=== PATIENT | female | born 1940 | race African-American/Black ===

== ENCOUNTER → 2017-06-06 | Outpatient (CLI) | payer MEDICARE, MEDICAID | END | disposition home or self-care (01) | LOC: NM 07:39 | PROVIDERS: ATTEND Internal Medicine Endocrinology, Diabetes & Metabolism | DX: E83.52 Hypercalcemia (principal) | CPT/HCPCS: 78070; A9500 ==

== ENCOUNTER → 2017-08-23 | Outpatient (CLI) | payer MEDICARE, MEDICAID | END | disposition home or self-care (01) | LOC: CARD 11:02 | PROVIDERS: ATTEND Internal Medicine Nephrology | DX: I51.7 Cardiomegaly (principal); J98.11 Atelectasis; D35.1 Benign neoplasm of parathyroid gland | CPT/HCPCS: 71045; 93005 ==

== ENCOUNTER → 2017-12-28 | Outpatient (CLI) | payer MEDICARE, MEDICAID | END | disposition home or self-care (01) | LOC: NM 07:15 | PROVIDERS: ATTEND Surgery | DX: E21.3 Hyperparathyroidism, unspecified (principal); I11.0 Hypertensive heart disease with heart failure; I50.9 Heart failure, unspecified; K21.9 Gastro-esophageal reflux disease without esophagitis; E78.00 Pure hypercholesterolemia, unspecified; I48.91 Unspecified atrial fibrillation | CPT/HCPCS: 78070; A9500 ==

== ENCOUNTER 2020-05-01 10:29 | Inpatient (IN) | payer MEDICARE, MEDICAID ==
[~2020-05-01] VITALS: Ht 167.6 cm; Wt 79.6 kg
[2020-05-01 11:07] LABS: BASOPHILS % 0.7 % (0.0-2.0); EOSINOPHILS % 0.5 % (0.0-5.0); HEMATOCRIT. 36.1 % (36.0-48.0); HEMOGLOBIN. 11.6 g/dL (12.0-16.0); LYMPHOCYTES % 24.8 % (20.0-50.0); MEAN CORPUSCULAR HEMOGLOBIN 28.3 pg (28.0-32.0); MEAN PLATELET VOLUME 8.7 fl (7.4-10.4); MONOCYTES % 7.8 % (2.0-8.0); NEUTROPHILS % 66.2 % (40.0-76.0); PLATELET 198 x1000/uL (130-400); RED BLOOD CELL COUNT 4.11 mill/uL (4.2-5.4); RED CELL DISTRIBUTION WIDTH 13.5 % (11.6-14.6)
[2020-05-01 11:13] LABS: CHLORIDE 111 mEq/L (98-107)
[2020-05-01] MEDS ORDERED: FUROSEMIDE 20MG/2ML VIAL IVP ONE (11:45)
[2020-05-01] MEDS ORDERED: MAGNESIUM 1 G PREMIX 100 ML IV ONE (11:45)
[2020-05-01] MEDS ORDERED: CLONIDINE 0.1MG TABLET PO PRN ×2 (15:15→17:30)
[2020-05-01] MEDS ORDERED: LOSARTAN POTASSIUM 25 MG TABLET PO SCH (15:26)
[2020-05-01] MEDS ORDERED: ENOXAPARIN 60MG/0.6ML SYR SUBCUT NR (16:00)
[2020-05-01] MEDS ORDERED: GUAIFENESIN 200MG/10ML SUGAR FREE UDC PO PRN (17:30)
[2020-05-01] MEDS ORDERED: MAGNESIUM/ALUMINUM HYDROXIDE/SIMETHICONE 30ML UDC PO PRN (17:30)
[2020-05-01] MEDS ORDERED: ONDANSETRON HCL 4MG/2ML INJ IV PRN (17:30)
[2020-05-01] MEDS ORDERED: ACETAMINOPHEN 325MG TABLET PO PRN (17:30)
[2020-05-01] MEDS ORDERED: DIPHENHYDRAMINE 50MG/ML VIAL IV PRN (17:30)
[2020-05-01] MEDS ORDERED: DILTIAZEM HCL 60MG TABLET PO SCH (18:00)
[2020-05-01] MEDS: ACETAMINOPHEN 325MG TABLET PO PRN (18:43)
[2020-05-01] MEDS: FUROSEMIDE 100MG/10ML VIAL IVP SCH (21:00)
[2020-05-01] MEDS: SODIUM CHLORIDE 0.9% INJ 3ML FLUSH IVF SCH (22:00)
[2020-05-02 07:10] LABS: CHLORIDE 110 mEq/L (98-107)
[2020-05-02 07:18] LABS: LDL CHOLESTEROL 52 mg/dL (5-100)
[2020-05-02 07:19] LABS: HDL CHOLESTEROL 56 mg/dL (40-59)
[2020-05-02 07:20] LABS: CREATINE KINASE 205 IU/L (26-192); CREATINE KINASE MB FRACTION 3.1 ng/mL (0.5-3.6)
[2020-05-02 07:47] LABS: EOSINOPHILS % 1.3 % (0.0-5.0); HEMATOCRIT. 34.8 % (36.0-48.0); HEMOGLOBIN. 11.1 g/dL (12.0-16.0); LYMPHOCYTES % 38.7 % (20.0-50.0); MEAN CORPUSCULAR HEMOGLOBIN 28.3 pg (28.0-32.0); MEAN CORPUSCULAR VOLUME 88.9 fL (81.0-99.0); MEAN PLATELET VOLUME 9.1 fl (7.4-10.4); MONOCYTES % 11.5 % (2.0-8.0); NEUTROPHILS % 47.5 % (40.0-76.0); PLATELET 187 x1000/uL (130-400); RED BLOOD CELL COUNT 3.91 mill/uL (4.2-5.4); RED CELL DISTRIBUTION WIDTH 13.7 % (11.6-14.6)
[2020-05-02] MEDS ORDERED: ENOXAPARIN 40MG/0.4ML SYR SUBCUT SCH ×2 (09:00→12:15)
[2020-05-02 10:40] VITALS: BP 145/91
[2020-05-02] MEDS: FUROSEMIDE 100MG/10ML VIAL IVP SCH ×2 (11:47→17:02)
[2020-05-02 12:00] VITALS: BP 145/90
[2020-05-02] MEDS ORDERED: DILTIAZEM HCL 60MG TABLET PO SCH (12:00)
[2020-05-02] MEDS: DILTIAZEM HCL 90MG TABLET PO SCH ×3 (12:16→17:03)
[2020-05-02] MEDS: POTASSIUM CHLORIDE 20MEQ TABLET SR PO SCH ×2 (12:16→17:02)
[2020-05-02] MEDS: SODIUM CHLORIDE 0.9% INJ 3ML FLUSH IVF SCH ×2 (14:27→22:25)
[2020-05-02 16:00] VITALS: BP 104/77
[2020-05-02] MEDS ORDERED: HYDROCODONE/ACETAMINOPHEN 5/325MG TABLET PO PRN (19:00)
[2020-05-02 20:00] VITALS: BP 118/80
[2020-05-02] MEDS: ZOLPIDEM TARTRATE 5MG TABLET PO PRN (22:25)
[2020-05-02] MEDS: ENOXAPARIN 80MG/0.8ML SYR SUBCUT SCH (22:25)
[2020-05-03] VITALS: BP 117/84
[2020-05-03] MEDS: DILTIAZEM HCL 90MG TABLET PO SCH ×4 (00:35→17:05)
[2020-05-03 04:00] VITALS: BP_SYST 113; BP_DIAS 54; BP_DIAS 78
[2020-05-03] MEDS: SODIUM CHLORIDE 0.9% INJ 3ML FLUSH IVF SCH ×3 (06:42→22:14)
[2020-05-03 07:31] LABS: BASOPHILS % 1.1 % (0.0-2.0); EOSINOPHILS % 1.7 % (0.0-5.0); HEMATOCRIT. 32.8 % (36.0-48.0); HEMOGLOBIN. 10.6 g/dL (12.0-16.0); LYMPHOCYTES % 25.1 % (20.0-50.0); MEAN CORPUSCULAR HEMOGLOBIN 28.6 pg (28.0-32.0); MEAN CORPUSCULAR VOLUME 88.3 fL (81.0-99.0); MEAN PLATELET VOLUME 9.4 fl (7.4-10.4); MONOCYTES % 10.3 % (2.0-8.0); NEUTROPHILS % 61.8 % (40.0-76.0); PLATELET 179 x1000/uL (130-400); RED BLOOD CELL COUNT 3.72 mill/uL (4.2-5.4); RED CELL DISTRIBUTION WIDTH 13.6 % (11.6-14.6)
[2020-05-03 07:45] LABS: CHLORIDE 109 mEq/L (98-107)
[2020-05-03 08:00] VITALS: BP 120/80
[2020-05-03] MEDS: ENOXAPARIN 80MG/0.8ML SYR SUBCUT SCH ×2 (09:30→22:12)
[2020-05-03] MEDS: FUROSEMIDE 20MG/2ML VIAL IVP SCH ×2 (09:30→22:12)
[2020-05-03] MEDS: POTASSIUM CHLORIDE 20MEQ TABLET SR PO SCH ×2 (09:30→17:05)
[2020-05-03 12:00] VITALS: BP 106/71
[2020-05-03] MEDS: ASPIRIN 81MG TABLET PO SCH (14:54)
[2020-05-03] MEDS: NITROGLYCERIN OINT 1GM/INCH UDPKT TD SCH ×2 (14:54→22:13)
[2020-05-03 16:00] VITALS: BP 124/68
[2020-05-03 20:00] VITALS: BP 105/66
[2020-05-03] MEDS: ZOLPIDEM TARTRATE 5MG TABLET PO PRN (22:11)
[2020-05-03] MEDS: LOSARTAN POTASSIUM 25 MG TABLET PO SCH (22:12)
[2020-05-04] VITALS: BP 115/47
[2020-05-04 04:00] VITALS: BP 111/64
[2020-05-04] MEDS: NITROGLYCERIN OINT 1GM/INCH UDPKT TD SCH ×3 (07:10→22:16)
[2020-05-04] MEDS: DILTIAZEM HCL 90MG TABLET PO SCH ×4 (07:10→17:44)
[2020-05-04] MEDS: SODIUM CHLORIDE 0.9% INJ 3ML FLUSH IVF SCH ×3 (07:11→22:00)
[2020-05-04 08:00] VITALS: BP 137/85
[2020-05-04] MEDS: POTASSIUM CHLORIDE 20MEQ TABLET SR PO SCH (09:43)
[2020-05-04] MEDS: ASPIRIN 81MG TABLET PO SCH (09:43)
[2020-05-04] MEDS: LOSARTAN POTASSIUM 25 MG TABLET PO SCH (09:43)
[2020-05-04] MEDS: ACETAMINOPHEN 325MG TABLET PO PRN (09:43)
[2020-05-04] MEDS: FUROSEMIDE 20MG/2ML VIAL IVP SCH (09:43)
[2020-05-04] MEDS: ENOXAPARIN 80MG/0.8ML SYR SUBCUT SCH (09:44)
[2020-05-04] MEDS: SODIUM CHLORIDE 0.45% 1,000 ML IV SCH (09:48)
[2020-05-04] MEDS: ACETYLCYSTEINE 200MG/ML 20% VIAL 4ML PO SCH ×2 (11:04→22:16)
[2020-05-04 12:00] VITALS: BP 105/83
[2020-05-04 16:00] VITALS: BP 106/77
[2020-05-04 20:00] VITALS: BP_SYST 118; BP_SYST 119; BP_DIAS 75; BP_DIAS 82
[2020-05-04] MEDS: ZOLPIDEM TARTRATE 5MG TABLET PO PRN (22:19)
[2020-05-05] VITALS: BP 114/76
[2020-05-05] MEDS: DILTIAZEM HCL 90MG TABLET PO SCH ×5 (00:53→23:57)
[2020-05-05] MEDS: SODIUM CHLORIDE 0.45% 1,000 ML IV SCH (01:03)
[2020-05-05 04:00] VITALS: BP 126/86
[2020-05-05] MEDS: SODIUM CHLORIDE 0.9% INJ 3ML FLUSH IVF SCH ×3 (06:00→22:37)
[2020-05-05] MEDS: NITROGLYCERIN OINT 1GM/INCH UDPKT TD SCH ×3 (06:48→22:39)
[2020-05-05 08:00] VITALS: BP 98/57
[2020-05-05] MEDS: ASPIRIN 81MG TABLET PO SCH (09:00)
[2020-05-05] MEDS ORDERED: ENOXAPARIN 80MG/0.8ML SYR SUBCUT SCH (09:00)
[2020-05-05] MEDS ORDERED: SODIUM CHLORIDE 0.45% 1,000 ML IV SCH ×4 (09:15→23:45)
[2020-05-05] MEDS ORDERED: NICARDIPINE 100MCG/ML 10ML VIAL (CATH LAB) IV ONE (11:00)
[2020-05-05] MEDS ORDERED: NITROGLYCERIN 50MCG/ML 10ML VIAL (CATH LAB) IV ONE (11:00)
[2020-05-05] MEDS ORDERED: HEPARIN SODIUM 1,000 UNIT/1ML VIAL IV ONE (11:00)
[2020-05-05] MEDS ORDERED: ASPIRIN/SOD BICARB/CITRIC ACID 324MG TAB EFF ONE (11:46)
[2020-05-05] MEDS ORDERED: LIDOCAINE HCL 1% 20ML VIAL (Pyxis) INJ ONE (11:48)
[2020-05-05] MEDS ORDERED: IODIXANOL 320MG/ML 100 ML BOTTLE IV ONE (11:49)
[2020-05-05 12:00] VITALS: BP 120/89
[2020-05-05] MEDS ORDERED: MIDAZOLAM HCL 2 MG/2 ML VIAL ONE (13:09)
[2020-05-05] MEDS ORDERED: FENTANYL CITRATE/PF 50MCG/ML 2ML VIAL ONE (13:09)
[2020-05-05] MEDS ORDERED: ACETAMINOPHEN 325MG TABLET PO PRN (14:15)
[2020-05-05] MEDS ORDERED: ATROPINE SULFATE 1MG/10ML SYR IV PRN (14:15)
[2020-05-05] MEDS ORDERED: MORPHINE SULFATE 2 MG/ML CPJ (NOT FOR IM USE) IV PRN (14:15)
[2020-05-05] MEDS ORDERED: FUROSEMIDE 20MG TABLET PO NR (17:45)
[2020-05-05 20:00] VITALS: BP 128/69
[2020-05-05] MEDS ORDERED: ENOXAPARIN 60MG/0.6ML SYR SUBCUT NR (21:00)
[2020-05-05] MEDS: FUROSEMIDE 20MG/2ML VIAL IVP SCH (21:00)
[2020-05-05] MEDS: ACETYLCYSTEINE 200MG/ML 20% VIAL 4ML PO SCH (22:38)
[2020-05-05] MEDS: ZOLPIDEM TARTRATE 5MG TABLET PO PRN (23:57)
[2020-05-06] VITALS: BP 111/84
[2020-05-06 04:00] VITALS: BP 126/79
[2020-05-06] MEDS: DILTIAZEM HCL 90MG TABLET PO SCH ×3 (06:35→17:41)
[2020-05-06] MEDS: NITROGLYCERIN OINT 1GM/INCH UDPKT TD SCH ×3 (06:36→22:31)
[2020-05-06] MEDS: SODIUM CHLORIDE 0.9% INJ 3ML FLUSH IVF SCH ×3 (06:36→22:31)
[2020-05-06 07:34] LABS: CHLORIDE 105 mEq/L (98-107)
[2020-05-06 07:37] LABS: BASOPHILS % 0.8 % (0.0-2.0); EOSINOPHILS % 1.5 % (0.0-5.0); HEMATOCRIT. 31.7 % (36.0-48.0); HEMOGLOBIN. 10.1 g/dL (12.0-16.0); LYMPHOCYTES % 25.2 % (20.0-50.0); MEAN CORPUSCULAR HEMOGLOBIN 28.2 pg (28.0-32.0); MEAN CORPUSCULAR VOLUME 88.4 fL (81.0-99.0); MEAN PLATELET VOLUME 9.3 fl (7.4-10.4); MONOCYTES % 13.7 % (2.0-8.0); NEUTROPHILS % 58.8 % (40.0-76.0); PLATELET 177 x1000/uL (130-400); RED BLOOD CELL COUNT 3.59 mill/uL (4.2-5.4); RED CELL DISTRIBUTION WIDTH 13.6 % (11.6-14.6)
[2020-05-06 08:00] VITALS: BP 118/65
[2020-05-06] MEDS: ACETYLCYSTEINE 200MG/ML 20% VIAL 4ML PO SCH (09:00)
[2020-05-06] MEDS: FUROSEMIDE 20MG/2ML VIAL IVP SCH (09:30)
[2020-05-06] MEDS: ASPIRIN 81MG TABLET PO SCH (09:30)
[2020-05-06 11:56] LABS: BG BASE EXCESS 5.5 mmol/L (-2.0-2.0); BG CARBOXYHEMOGLOBIN 0.4 % (0.5-1.5); BG DEOXYHEMOGLOBIN 0.8 % (0.0-5.0); BG FRACTION INSPIRED OXYGEN 44; BG HCO3 ACT 27.8 mmol/L (22.0-26.0); BG METHEMOGLOBIN 0.3 % (0.0-1.5); BG OXYGEN SATURATION 99.2 % (92.0-98.5); BG OXYHEMOGLOBIN 98.5 % (94.0-97.0); BG PCO2 32.3 mmHg (35.0-45.0); BG PH 7.552 (7.350-7.450); BG PO2 139.9 mmHg (75.0-100.0); BG SAMPLE SITE RIGHT RADIAL; BG TOTAL HEMOGLOBIN 11.3 g/dL (12.0-18.0); BG VENT MODE NASAL CANNULA
[2020-05-06] MEDS: LOSARTAN POTASSIUM 25 MG TABLET PO SCH (13:55)
[2020-05-06] MEDS ORDERED: ENOXAPARIN 80MG/0.8ML SYR SUBCUT NR (14:14)
[2020-05-06 20:00] VITALS: BP 112/74
[2020-05-07] VITALS: BP 118/63
[2020-05-07] MEDS: DILTIAZEM HCL 90MG TABLET PO SCH ×3 (00:38→12:00)
[2020-05-07] MEDS: NITROGLYCERIN OINT 1GM/INCH UDPKT TD SCH ×3 (03:00→18:50)
[2020-05-07 04:00] VITALS: BP 127/71
[2020-05-07] MEDS: SODIUM CHLORIDE 0.9% INJ 3ML FLUSH IVF SCH ×2 (06:00→22:00)
[2020-05-07] MEDS ORDERED: LIDOCAINE HCL 1% 20ML VIAL (Pyxis) INJ ONE (08:25)
[2020-05-07] MEDS ORDERED: IODIXANOL 320MG/ML 100 ML BOTTLE IV ONE (08:25)
[2020-05-07] MEDS: FUROSEMIDE 20MG/2ML VIAL IVP SCH (09:00)
[2020-05-07] MEDS: LOSARTAN POTASSIUM 25 MG TABLET PO SCH (09:00)
[2020-05-07] MEDS: ASPIRIN 81MG TABLET PO SCH (09:00)
[2020-05-07] MEDS ORDERED: ROCURONIUM BROMIDE 10MG/ML VIAL 5ML IV ONE (09:05)
[2020-05-07] MEDS ORDERED: MIDAZOLAM HCL 2 MG/2 ML VIAL ONE ×2 (09:05→09:39)
[2020-05-07] MEDS ORDERED: FENTANYL CITRATE/PF 50MCG/ML 2ML VIAL ONE ×2 (09:05→09:40)
[2020-05-07] MEDS ORDERED: ONDANSETRON HCL 4MG/2ML INJ ONE (09:06)
[2020-05-07] MEDS ORDERED: SUCCINYLCHOLINE CHLORIDE 200MG/10ML IV ONE (09:06)
[2020-05-07] MEDS ORDERED: NEOSTIGMINE METHYLSULFATE 1MG/ML 10 ML VIAL ONE (09:06)
[2020-05-07] MEDS ORDERED: PROPOFOL 200MG/20ML VIAL IV ONE (09:06)
[2020-05-07] MEDS ORDERED: METOCLOPRAMIDE HCL 10MG/2ML VIAL ONE (09:06)
[2020-05-07] MEDS ORDERED: GLYCOPYRROLATE 0.2 MG/ML 2ML VIAL ONE (09:07)
[2020-05-07] MEDS ORDERED: SODIUM CHLORIDE 0.9% 10ML VIAL ONE (09:07)
[2020-05-07] MEDS ORDERED: PHENYLEPHRINE HCL 10 MG/ML 1ML (IV VIAL) IV ONE (09:07)
[2020-05-07] MEDS ORDERED: EPHEDRINE SULFATE 50MG/ML VIAL ONE (09:07)
[2020-05-07] MEDS ORDERED: LIDOCAINE HCL/PF 1% 10 MG/ML 5ML VIAL ONE (09:07)
[2020-05-07] MEDS ORDERED: CEFAZOLIN SODIUM 1000MG/VIAL ONE (09:07)
[2020-05-07] MEDS ORDERED: GENTAMICIN SULF 40MG/ML 2ML VIAL ONE (10:07)
[2020-05-07] MEDS ORDERED: GENTAMICIN/NS IRRIGATION 500 ML IR ONE (10:07)
[2020-05-07 11:19] LABS: BG BASE EXCESS -0.4 mmol/L (-2.0-2.0); BG CARBOXYHEMOGLOBIN 0.3 % (0.5-1.5); BG DEOXYHEMOGLOBIN 4.2 % (0.0-5.0); BG HCO3 ACT 22.6 mmol/L (22.0-26.0); BG METHEMOGLOBIN 0.6 % (0.0-1.5); BG OXYGEN SATURATION 95.8 % (92.0-98.5); BG OXYHEMOGLOBIN 94.9 % (94.0-97.0); BG PCO2 31.6 mmHg (35.0-45.0); BG PH 7.473 (7.350-7.450); BG PO2 83.8 mmHg (75.0-100.0); BG SAMPLE SITE ALINE; BG TOTAL HEMOGLOBIN 10.8 g/dL (12.0-18.0)
[2020-05-07 11:27] LABS: BG CARBOXYHEMOGLOBIN 0.1 % (0.5-1.5); BG DEOXYHEMOGLOBIN 53.4 % (0.0-5.0); BG FRACTION INSPIRED OXYGEN 50; BG METHEMOGLOBIN 0.3 % (0.0-1.5); BG OXYGEN SATURATION 46.4 % (92.0-98.5); BG OXYHEMOGLOBIN 46.2 % (94.0-97.0); BG PO2 < 30.3 mmHg (75.0-100.0); BG TOTAL HEMOGLOBIN 11.2 g/dL (12.0-18.0); BG VENT MODE VENT - AC
[2020-05-07 11:28] LABS: BG FRACTION INSPIRED OXYGEN 50
[2020-05-07] MEDS ORDERED: LABETALOL 5MG/ML SYR 20 MG/4 ML SYRINGE IV NR (14:00)
[2020-05-07] MEDS ORDERED: MEPERIDINE HCL/PF 25MG/ML CPJ IV PRN (14:00)
[2020-05-07] MEDS ORDERED: ONDANSETRON HCL 4MG/2ML INJ IV PRN (14:00)
[2020-05-07] MEDS ORDERED: HYDROMORPHONE HCL/PF 2MG/ML CPJ IV PRN (14:00)
[2020-05-07] MEDS ORDERED: SODIUM CHLORIDE 0.9% 1,000 ML IV ONE (14:00)
[2020-05-07] MEDS ORDERED: MIDAZOLAM HCL 5 MG/5 ML VIAL IV NR (14:01)
[2020-05-07] MEDS ORDERED: MIDAZOLAM HCL 5 MG/5 ML VIAL ONE (14:01)
[2020-05-07] MEDS ORDERED: HYDROCODONE/ACETAMINOPHEN 5/325MG TABLET PO PRN (14:15)
[2020-05-07] MEDS ORDERED: FUROSEMIDE 100MG/10ML VIAL IVP SCH (14:15)
[2020-05-07] MEDS ORDERED: FUROSEMIDE 20MG/2ML VIAL ONE (14:20)
[2020-05-07 14:38] LABS: BG BASE EXCESS -1.9 mmol/L (-2.0-2.0); BG CARBOXYHEMOGLOBIN 0.3 % (0.5-1.5); BG DEOXYHEMOGLOBIN 5.2 % (0.0-5.0); BG FRACTION INSPIRED OXYGEN 70; BG HCO3 ACT 23.4 mmol/L (22.0-26.0); BG METHEMOGLOBIN 0.5 % (0.0-1.5); BG OXYGEN SATURATION 94.8 % (92.0-98.5); BG PCO2 41.8 mmHg (35.0-45.0); BG PEEP (cmH2O) 0 cmH2O; BG PH 7.366 (7.350-7.450); BG PO2 80.2 mmHg (75.0-100.0); BG SAMPLE SITE RIGHT RADIAL; BG VENT MODE VENT - AC
[2020-05-07] MEDS ORDERED: FUROSEMIDE 100MG/10ML VIAL IVP NR (15:00)
[2020-05-07 18:20] LABS: BG BASE EXCESS -0.5 mmol/L (-2.0-2.0); BG CARBOXYHEMOGLOBIN 0.6 % (0.5-1.5); BG DEOXYHEMOGLOBIN 6.3 % (0.0-5.0); BG FRACTION INSPIRED OXYGEN 50; BG HCO3 ACT 24.5 mmol/L (22.0-26.0); BG METHEMOGLOBIN 0.3 % (0.0-1.5); BG OXYGEN SATURATION 93.6 % (92.0-98.5); BG OXYHEMOGLOBIN 92.8 % (94.0-97.0); BG PCO2 41.6 mmHg (35.0-45.0); BG PH 7.388 (7.350-7.450); BG SAMPLE SITE ALINE; BG TOTAL HEMOGLOBIN 12.4 g/dL (12.0-18.0); BG TOTAL RESPIRATORY RATE 24 b/min; BG VENT MODE VENT - CPAP
[2020-05-07] MEDS ORDERED: LABETALOL 5MG/ML SYR 20 MG/4 ML SYRINGE IV ONE ×2 (18:45→18:46)
[2020-05-07 18:47] LABS: BG PRESSURE SUPPORT 10
[2020-05-07] MEDS: CEFAZOLIN 1000MG PREMIX 50 ML IV SCH ×2 (18:53→19:15)
[2020-05-07] MEDS: CARVEDILOL 6.25 MG TABLET PO SCH (21:26)
[2020-05-07] MEDS: ACETAMINOPHEN 325MG TABLET PO PRN (21:28)
[2020-05-07 21:54] LABS: BG BASE EXCESS 4.2 mmol/L (-2.0-2.0); BG DEOXYHEMOGLOBIN 3.8 % (0.0-5.0); BG FRACTION INSPIRED OXYGEN 50; BG HCO3 ACT 29.1 mmol/L (22.0-26.0); BG METHEMOGLOBIN 0.3 % (0.0-1.5); BG OXYGEN SATURATION 96.2 % (92.0-98.5); BG OXYHEMOGLOBIN 95.9 % (94.0-97.0); BG PCO2 44.9 mmHg (35.0-45.0); BG PO2 82.5 mmHg (75.0-100.0); BG SAMPLE SITE ALINE; BG TOTAL HEMOGLOBIN 11.8 g/dL (12.0-18.0); BG VENT MODE VENT - SIMV
[2020-05-07] MEDS: MIDAZOLAM HCL 5 MG/5 ML VIAL IV PRN (22:50)
[2020-05-08] VITALS (60 sets, daily range): BP systolic 90–198; BP diastolic 65–102
[2020-05-08] MEDS: CEFAZOLIN 1000MG PREMIX 50 ML IV SCH ×3 (02:10→17:01)
[2020-05-08] MEDS: MIDAZOLAM HCL 5 MG/5 ML VIAL IV PRN (03:19)
[2020-05-08 05:49] LABS: BG PRESSURE SUPPORT 10
[2020-05-08] MEDS: SODIUM CHLORIDE 0.9% INJ 3ML FLUSH IVF SCH ×3 (06:00→22:00)
[2020-05-08 06:22] LABS: BASOPHILS % 0.4 % (0.0-2.0); EOSINOPHILS % 0.3 % (0.0-5.0); HEMATOCRIT. 32.4 % (36.0-48.0); HEMOGLOBIN. 10.6 g/dL (12.0-16.0); LYMPHOCYTES % 10.3 % (20.0-50.0); MEAN CORPUSCULAR HEMOGLOBIN 28.9 pg (28.0-32.0); MEAN CORPUSCULAR VOLUME 88.3 fL (81.0-99.0); MEAN PLATELET VOLUME 8.7 fl (7.4-10.4); MONOCYTES % 13.4 % (2.0-8.0); NEUTROPHILS % 75.6 % (40.0-76.0); PLATELET 174 x1000/uL (130-400); RED BLOOD CELL COUNT 3.67 mill/uL (4.2-5.4); RED CELL DISTRIBUTION WIDTH 13.9 % (11.6-14.6)
[2020-05-08] MEDS: NITROGLYCERIN OINT 1GM/INCH UDPKT TD SCH ×4 (08:41→21:14)
[2020-05-08] MEDS: CARVEDILOL 6.25 MG TABLET PO SCH ×2 (08:42→21:14)
[2020-05-08] MEDS: APIXABAN 5 MG TABLET PO SCH ×2 (08:42→16:58)
[2020-05-08] MEDS: LOSARTAN POTASSIUM 25 MG TABLET PO SCH ×2 (08:42→16:58)
[2020-05-08] MEDS: ASPIRIN 81MG TABLET PO SCH (09:52)
[2020-05-08] MEDS ORDERED: HYDROCODONE/ACETAMINOPHEN 5/325MG TABLET ONE (12:07)
[2020-05-08 13:34] LABS: BG BASE EXCESS 2.2 mmol/L (-2.0-2.0); BG CARBOXYHEMOGLOBIN 0.4 % (0.5-1.5); BG DEOXYHEMOGLOBIN 3.2 % (0.0-5.0); BG HCO3 ACT 26.8 mmol/L (22.0-26.0); BG METHEMOGLOBIN 0.4 % (0.0-1.5); BG OXYGEN SATURATION 96.8 % (92.0-98.5); BG PCO2 41.5 mmHg (35.0-45.0); BG PH 7.428 (7.350-7.450); BG PO2 89.6 mmHg (75.0-100.0); BG SAMPLE SITE ALINE; BG TOTAL HEMOGLOBIN 11.5 g/dL (12.0-18.0); BG VENT MODE VENT - CPAP
[2020-05-08] MEDS ORDERED: FENTANYL CITRATE/PF 2,500 MCG in SODIUM CHLORIDE 0.9% 200 ML IV PRN (15:00)
[2020-05-08] MEDS ORDERED: FUROSEMIDE 40MG/4ML VIAL IVP NR (15:15)
[2020-05-08] MEDS: PROPOFOL 10MG/ML 100ML 100 ML IV PRN ×2 (15:33→22:31)
[2020-05-08] MEDS ORDERED: POTASSIUM CHLORIDE 20MEQ/PACKET PO SCH (16:00)
[2020-05-08] MEDS: METHYLPREDNISOLONE SOD SUCC 125 MG/2 ML VIAL IV SCH (17:01)
[2020-05-09] VITALS (25 sets, daily range): BP systolic 123–174; BP diastolic 64–112
[2020-05-09] MEDS: NITROGLYCERIN OINT 1GM/INCH UDPKT TD SCH ×5 (01:15→17:37)
[2020-05-09] MEDS: CEFAZOLIN 1000MG PREMIX 50 ML IV SCH ×3 (01:15→18:09)
[2020-05-09] MEDS: METHYLPREDNISOLONE SOD SUCC 125 MG/2 ML VIAL IV SCH ×4 (01:15→17:21)
[2020-05-09] MEDS: PROPOFOL 10MG/ML 100ML 100 ML IV PRN ×3 (05:32→22:11)
[2020-05-09] MEDS: SODIUM CHLORIDE 0.9% INJ 3ML FLUSH IVF SCH ×4 (06:00→22:00)
[2020-05-09] MEDS: ASPIRIN 81MG TABLET PO SCH (09:25)
[2020-05-09] MEDS: CARVEDILOL 6.25 MG TABLET PO SCH ×2 (09:26→20:39)
[2020-05-09] MEDS: APIXABAN 5 MG TABLET PO SCH ×2 (09:26→17:21)
[2020-05-09] MEDS: LOSARTAN POTASSIUM 25 MG TABLET PO SCH (09:26)
[2020-05-09] MEDS ORDERED: POTASSIUM CHLORIDE 20MEQ/PACKET PO NR (13:00)
[2020-05-09] MEDS: FUROSEMIDE 40MG/4ML VIAL IVP SCH (14:56)
[2020-05-09] MEDS ORDERED: PROPOFOL 10MG/ML 100ML 100 ML IV PRN (15:15)
[2020-05-09] MEDS: LOSARTAN POTASSIUM 50 MG TABLET PO SCH (20:38)
[2020-05-09] MEDS: DEXTROSE 5% WATER 1,000 ML IV SCH (22:14)
[2020-05-10] VITALS (20 sets, daily range): BP systolic 112–150; BP diastolic 66–99
[2020-05-10] MEDS: METHYLPREDNISOLONE SOD SUCC 125 MG/2 ML VIAL IV SCH ×5 (01:26→23:42)
[2020-05-10] MEDS: NITROGLYCERIN OINT 1GM/INCH UDPKT TD SCH ×4 (01:28→18:05)
[2020-05-10] MEDS: CEFAZOLIN 1000MG PREMIX 50 ML IV SCH ×3 (01:29→18:17)
[2020-05-10] MEDS: SODIUM CHLORIDE 0.9% INJ 3ML FLUSH IVF SCH ×3 (06:00→22:00)
[2020-05-10 07:46] LABS: HEMATOCRIT. 34.5 % (36.0-48.0); HEMOGLOBIN. 11.2 g/dL (12.0-16.0); MEAN CORPUSCULAR HEMOGLOBIN 28.5 pg (28.0-32.0); MEAN CORPUSCULAR VOLUME 87.6 fL (81.0-99.0); MEAN PLATELET VOLUME 9.1 fl (7.4-10.4); PLATELET 198 x1000/uL (130-400); RED BLOOD CELL COUNT 3.94 mill/uL (4.2-5.4); RED CELL DISTRIBUTION WIDTH 13.6 % (11.6-14.6)
[2020-05-10] MEDS: FUROSEMIDE 40MG/4ML VIAL IVP SCH (09:13)
[2020-05-10] MEDS: ASPIRIN 81MG TABLET PO SCH (09:13)
[2020-05-10] MEDS: POTASSIUM CHLORIDE 20MEQ/PACKET PO SCH (09:13)
[2020-05-10] MEDS: LOSARTAN POTASSIUM 50 MG TABLET PO SCH ×2 (09:14→20:52)
[2020-05-10] MEDS: APIXABAN 5 MG TABLET PO SCH ×2 (09:14→18:04)
[2020-05-10] MEDS: CARVEDILOL 6.25 MG TABLET PO SCH ×2 (09:14→20:52)
[2020-05-10] MEDS: ACETAMINOPHEN 325MG TABLET PO PRN (09:15)
[2020-05-10] MEDS: PROPOFOL 10MG/ML 100ML 100 ML IV SCH (12:50)
[2020-05-10] MEDS ORDERED: POTASSIUM CHLORIDE 20MEQ TABLET SR PO NR (17:15)
[2020-05-10 18:51] LABS: PLATELET ESTIMATE NORMAL
[2020-05-10] MEDS: FUROSEMIDE 20MG/2ML VIAL IVP SCH (20:52)
[2020-05-10] MEDS: DEXTROSE 5% WATER 1,000 ML IV SCH (21:15)
[2020-05-11] VITALS (38 sets, daily range): BP systolic 132–167; BP diastolic 68–103
[2020-05-11] MEDS: NITROGLYCERIN OINT 1GM/INCH UDPKT TD SCH ×5 (01:43→23:24)
[2020-05-11] MEDS: CEFAZOLIN 1000MG PREMIX 50 ML IV SCH ×3 (02:21→19:05)
[2020-05-11 05:42] LABS: CHLORIDE 108 mEq/L (98-107)
[2020-05-11] MEDS: SODIUM CHLORIDE 0.9% INJ 3ML FLUSH IVF SCH ×3 (06:00→22:11)
[2020-05-11] MEDS: METHYLPREDNISOLONE SOD SUCC 125 MG/2 ML VIAL IV SCH ×4 (06:04→23:24)
[2020-05-11] MEDS: PROPOFOL 10MG/ML 100ML 100 ML IV SCH (06:08)
[2020-05-11 06:10] LABS: HEMOGLOBIN. 11.8 g/dL (12.0-16.0); MEAN CORPUSCULAR HEMOGLOBIN 28.6 pg (28.0-32.0); MEAN CORPUSCULAR VOLUME 87.4 fL (81.0-99.0); MEAN PLATELET VOLUME 8.9 fl (7.4-10.4); PLATELET 203 x1000/uL (130-400); RED BLOOD CELL COUNT 4.12 mill/uL (4.2-5.4); RED CELL DISTRIBUTION WIDTH 13.9 % (11.6-14.6)
[2020-05-11] MEDS: DEXTROSE 5% WATER 1,000 ML IV SCH (10:41)
[2020-05-11] MEDS: ASPIRIN 81MG TABLET PO SCH (10:42)
[2020-05-11] MEDS: POTASSIUM CHLORIDE 20MEQ/PACKET PO SCH (10:42)
[2020-05-11] MEDS: CARVEDILOL 6.25 MG TABLET PO SCH ×2 (10:42→22:10)
[2020-05-11] MEDS: APIXABAN 5 MG TABLET PO SCH ×2 (10:43→19:04)
[2020-05-11] MEDS: FUROSEMIDE 40MG/4ML VIAL IVP SCH (11:12)
[2020-05-11 11:41] LABS: BG BASE EXCESS 5.2 mmol/L (-2.0-2.0); BG CARBOXYHEMOGLOBIN 0.3 % (0.5-1.5); BG DEOXYHEMOGLOBIN 3.5 % (0.0-5.0); BG FRACTION INSPIRED OXYGEN 40; BG HCO3 ACT 30.4 mmol/L (22.0-26.0); BG METHEMOGLOBIN 0.3 % (0.0-1.5); BG OXYGEN SATURATION 96.5 % (92.0-98.5); BG OXYHEMOGLOBIN 95.9 % (94.0-97.0); BG PCO2 47.1 mmHg (35.0-45.0); BG PH 7.428 (7.350-7.450); BG PO2 89.9 mmHg (75.0-100.0); BG SAMPLE SITE RIGHT RADIAL; BG TOTAL HEMOGLOBIN 12.4 g/dL (12.0-18.0); BG VENT MODE VENT - SIMV
[2020-05-11] MEDS ORDERED: NOREPINEPHRINE 32 MG in DEXT 5% WATER 218 ML IV PRN (11:45)
[2020-05-11] MEDS: LOSARTAN POTASSIUM 50 MG TABLET PO SCH ×2 (12:16→22:10)
[2020-05-11 14:35] LABS: PLATELET ESTIMATE NORMAL
[2020-05-11 17:06] LABS: BG CARBOXYHEMOGLOBIN 0.4 % (0.5-1.5); BG DEOXYHEMOGLOBIN 3.5 % (0.0-5.0); BG FRACTION INSPIRED OXYGEN 40; BG HCO3 ACT 32.5 mmol/L (22.0-26.0); BG METHEMOGLOBIN 0.2 % (0.0-1.5); BG OXYGEN SATURATION 96.5 % (92.0-98.5); BG OXYHEMOGLOBIN 95.9 % (94.0-97.0); BG PCO2 44.8 mmHg (35.0-45.0); BG PH 7.479 (7.350-7.450); BG PO2 82.9 mmHg (75.0-100.0); BG SAMPLE SITE RIGHT RADIAL; BG TOTAL HEMOGLOBIN 12.8 g/dL (12.0-18.0); BG VENT MODE VENT - CPAP
[2020-05-11] MEDS: FUROSEMIDE 20MG/2ML VIAL IVP SCH (22:10)
[2020-05-12] VITALS (21 sets, daily range): BP systolic 123–161; BP diastolic 63–105
[2020-05-12] MEDS: DILTIAZEM HCL 30MG TABLET PO SCH ×4 (00:37→17:18)
[2020-05-12] MEDS: CEFAZOLIN 1000MG PREMIX 50 ML IV SCH ×3 (01:55→17:19)
[2020-05-12 05:50] LABS: HEMATOCRIT. 37.7 % (36.0-48.0); HEMOGLOBIN. 12.2 g/dL (12.0-16.0); MEAN CORPUSCULAR HEMOGLOBIN 28.6 pg (28.0-32.0); MEAN CORPUSCULAR VOLUME 88.4 fL (81.0-99.0); MEAN PLATELET VOLUME 9.2 fl (7.4-10.4); PLATELET 212 x1000/uL (130-400); RED BLOOD CELL COUNT 4.26 mill/uL (4.2-5.4); RED CELL DISTRIBUTION WIDTH 13.6 % (11.6-14.6)
[2020-05-12] MEDS: SODIUM CHLORIDE 0.9% INJ 3ML FLUSH IVF SCH ×3 (05:59→21:35)
[2020-05-12] MEDS: NITROGLYCERIN OINT 1GM/INCH UDPKT TD SCH ×3 (05:59→17:19)
[2020-05-12] MEDS: METHYLPREDNISOLONE SOD SUCC 125 MG/2 ML VIAL IV SCH ×3 (05:59→17:18)
[2020-05-12] MEDS: APIXABAN 5 MG TABLET PO SCH ×2 (08:59→17:19)
[2020-05-12] MEDS: FUROSEMIDE 40MG/4ML VIAL IVP SCH (08:59)
[2020-05-12] MEDS: ASPIRIN 81MG TABLET PO SCH (09:00)
[2020-05-12] MEDS: LOSARTAN POTASSIUM 50 MG TABLET PO SCH ×2 (09:00→21:35)
[2020-05-12] MEDS: CARVEDILOL 6.25 MG TABLET PO SCH ×2 (09:01→21:35)
[2020-05-12] MEDS: POTASSIUM CHLORIDE 20MEQ/PACKET PO SCH (09:01)
[2020-05-12] MEDS ORDERED: POTASSIUM CHLORIDE 20MEQ/PACKET PO NR (14:15)
[2020-05-12 20:08] LABS: PLATELET ESTIMATE NORMAL
[2020-05-12] MEDS: FUROSEMIDE 20MG/2ML VIAL IVP SCH (21:35)
[2020-05-12] MEDS: ZOLPIDEM TARTRATE 5MG TABLET PO PRN (21:36)
[2020-05-13] VITALS (11 sets, daily range): BP systolic 103–148; BP diastolic 42–107
[2020-05-13] MEDS: DILTIAZEM HCL 30MG TABLET PO SCH ×4 (00:25→18:04)
[2020-05-13] MEDS: METHYLPREDNISOLONE SOD SUCC 125 MG/2 ML VIAL IV SCH ×4 (00:25→18:03)
[2020-05-13] MEDS: NITROGLYCERIN OINT 1GM/INCH UDPKT TD SCH ×4 (00:26→18:04)
[2020-05-13] MEDS: SODIUM CHLORIDE 0.9% INJ 3ML FLUSH IVF SCH ×3 (05:35→22:04)
[2020-05-13] MEDS: ASPIRIN 81MG TABLET PO SCH (08:46)
[2020-05-13] MEDS: APIXABAN 5 MG TABLET PO SCH ×2 (08:46→17:21)
[2020-05-13] MEDS: LOSARTAN POTASSIUM 50 MG TABLET PO SCH ×2 (08:46→22:04)
[2020-05-13] MEDS: CARVEDILOL 6.25 MG TABLET PO SCH ×3 (08:47→22:04)
[2020-05-13] MEDS: DOCUSATE SODIUM 250MG CAPSULE PO SCH (08:47)
[2020-05-13] MEDS: POTASSIUM CHLORIDE 20MEQ/PACKET PO SCH (08:47)
[2020-05-13] MEDS: FUROSEMIDE 40MG/4ML VIAL IVP SCH (08:48)
[2020-05-13] MEDS ORDERED: FUROSEMIDE 40MG TABLET PO SCH (12:30)
[2020-05-13] MEDS: SPIRONOLACTONE 25MG TABLET PO SCH (13:40)
[2020-05-13 15:31] LABS: HEMATOCRIT. 39.6 % (36.0-48.0); HEMOGLOBIN. 12.4 g/dL (12.0-16.0); MEAN CORPUSCULAR HEMOGLOBIN 27.8 pg (28.0-32.0); MEAN PLATELET VOLUME 9.5 fl (7.4-10.4); PLATELET 228 x1000/uL (130-400); RED BLOOD CELL COUNT 4.46 mill/uL (4.2-5.4); RED CELL DISTRIBUTION WIDTH 13.9 % (11.6-14.6)
[2020-05-13 16:07] LABS: PLATELET ESTIMATE NORMAL
[2020-05-13] MEDS: ZOLPIDEM TARTRATE 5MG TABLET PO PRN (22:04)
[2020-05-14] VITALS: BP 130/70
[2020-05-14] MEDS: NITROGLYCERIN OINT 1GM/INCH UDPKT TD SCH ×4 (00:31→17:51)
[2020-05-14] MEDS: DILTIAZEM HCL 30MG TABLET PO SCH ×4 (00:31→17:50)
[2020-05-14] MEDS: METHYLPREDNISOLONE SOD SUCC 125 MG/2 ML VIAL IV SCH ×3 (02:10→17:49)
[2020-05-14 04:22] VITALS: BP 129/79
[2020-05-14] MEDS: SODIUM CHLORIDE 0.9% INJ 3ML FLUSH IVF SCH ×3 (06:41→21:39)
[2020-05-14] MEDS: CARVEDILOL 6.25 MG TABLET PO SCH (06:41)
[2020-05-14 08:00] VITALS: BP 128/80
[2020-05-14 08:25] LABS: HEMATOCRIT. 39.6 % (36.0-48.0); HEMOGLOBIN. 12.7 g/dL (12.0-16.0); MEAN CORPUSCULAR HEMOGLOBIN 28.1 pg (28.0-32.0); MEAN CORPUSCULAR VOLUME 87.8 fL (81.0-99.0); MEAN PLATELET VOLUME 9.8 fl (7.4-10.4); PLATELET 224 x1000/uL (130-400); RED BLOOD CELL COUNT 4.51 mill/uL (4.2-5.4); RED CELL DISTRIBUTION WIDTH 13.7 % (11.6-14.6)
[2020-05-14] MEDS ORDERED: FUROSEMIDE 40MG TABLET PO SCH (09:00)
[2020-05-14] MEDS: ASPIRIN 81MG TABLET PO SCH (09:51)
[2020-05-14] MEDS: POTASSIUM CHLORIDE 20MEQ/PACKET PO SCH (09:51)
[2020-05-14] MEDS: DOCUSATE SODIUM 250MG CAPSULE PO SCH (09:52)
[2020-05-14] MEDS: LOSARTAN POTASSIUM 50 MG TABLET PO SCH ×2 (09:52→21:39)
[2020-05-14] MEDS: FUROSEMIDE 40MG TABLET PO SCH (09:52)
[2020-05-14] MEDS: APIXABAN 5 MG TABLET PO SCH ×2 (09:52→17:49)
[2020-05-14] MEDS: SPIRONOLACTONE 25MG TABLET PO SCH (09:53)
[2020-05-14 12:00] VITALS: BP 106/76
[2020-05-14 14:08] LABS: PLATELET ESTIMATE NORMAL
[2020-05-14 16:00] VITALS: BP 166/79
[2020-05-14] MEDS: CARVEDILOL 12.5MG TABLET PO SCH (17:51)
[2020-05-14 23:39] VITALS: BP 121/70
[2020-05-15] MEDS: DILTIAZEM HCL 30MG TABLET PO SCH ×4 (00:27→18:00)
[2020-05-15] MEDS: NITROGLYCERIN OINT 1GM/INCH UDPKT TD SCH ×4 (00:27→18:00)
[2020-05-15] MEDS: ZOLPIDEM TARTRATE 5MG TABLET PO PRN (00:30)
[2020-05-15 03:32] VITALS: BP 122/64
[2020-05-15] MEDS: SODIUM CHLORIDE 0.9% INJ 3ML FLUSH IVF SCH ×3 (06:06→22:02)
[2020-05-15 08:00] VITALS: BP 113/70
[2020-05-15] MEDS: LOSARTAN POTASSIUM 50 MG TABLET PO SCH ×2 (09:00→22:01)
[2020-05-15] MEDS: SPIRONOLACTONE 25MG TABLET PO SCH (09:00)
[2020-05-15] MEDS: CARVEDILOL 12.5MG TABLET PO SCH ×2 (09:00→17:00)
[2020-05-15] MEDS: METHYLPREDNISOLONE SOD SUCC 125 MG/2 ML VIAL IV SCH ×2 (09:37→17:00)
[2020-05-15] MEDS: POTASSIUM CHLORIDE 20MEQ/PACKET PO SCH (09:37)
[2020-05-15] MEDS: APIXABAN 5 MG TABLET PO SCH ×2 (09:38→17:41)
[2020-05-15] MEDS: ASPIRIN 81MG TABLET PO SCH (09:38)
[2020-05-15] MEDS: DOCUSATE SODIUM 250MG CAPSULE PO SCH (09:38)
[2020-05-15] MEDS: FUROSEMIDE 40MG TABLET PO SCH (09:38)
[2020-05-15 12:00] VITALS: BP 116/55
[2020-05-15 16:00] VITALS: BP 104/72
[2020-05-15 19:03] VITALS: BP 113/55
[2020-05-15 20:00] VITALS: BP 113/55
== END 2020-05-15 22:20 | DRG 222 ==
LOC: ER 10:29 → MICUSO 12:53 → EDBEDREQ 12:56 → EDBEDREQTM 12:56 → 5WST 05-02 08:34 → 5EST 05-08 05:30 → 5WST 05-13 18:52
PROVIDERS: ADMIT Internal Medicine; ATTEND Internal Medicine
PROC: 5A1955Z Respiratory Ventilation, Greater than 96 Consecutive Hours (ICD-10-PCS; principal; 2020-05-05)
PROC: 4A023N7 Measurement of Cardiac Sampling and Pressure, Left Heart, Percutaneous Approach (ICD-10-PCS; 2020-05-05)
PROC: B2111ZZ Fluoroscopy of Multiple Coronary Arteries using Low Osmolar Contrast (ICD-10-PCS; 2020-05-05)
PROC: 0BH18EZ Insertion of Endotracheal Airway into Trachea, Via Natural or Artificial Opening Endoscopic (ICD-10-PCS; 2020-05-05)
PROC: 0JH609Z Insertion of Cardiac Resynchronization Defibrillator Pulse Generator into Chest Subcutaneous Tissue and Fascia, Open Approach (ICD-10-PCS; 2020-05-07)
PROC: 02HL3KZ Insertion of Defibrillator Lead into Left Ventricle, Percutaneous Approach (ICD-10-PCS; 2020-05-07)
PROC: 02HK3KZ Insertion of Defibrillator Lead into Right Ventricle, Percutaneous Approach (ICD-10-PCS; 2020-05-07)
PROC: 02H63KZ Insertion of Defibrillator Lead into Right Atrium, Percutaneous Approach (ICD-10-PCS; 2020-05-07)
PROC: B5171ZZ Fluoroscopy of Left Subclavian Vein using Low Osmolar Contrast (ICD-10-PCS; 2020-05-07)
DX: I13.0 Hypertensive heart and chronic kidney disease with heart failure and stage 1 through stage 4 chronic kidney disease, or unspecified chronic kidney disease (principal); J96.01 Acute respiratory failure with hypoxia; I50.43 Acute on chronic combined systolic (congestive) and diastolic (congestive) heart failure; N17.9 Acute kidney failure, unspecified; I48.20 Chronic atrial fibrillation, unspecified; I25.10 Atherosclerotic heart disease of native coronary artery without angina pectoris; E66.9 Obesity, unspecified; D64.9 Anemia, unspecified; E78.00 Pure hypercholesterolemia, unspecified; E88.09 Other disorders of plasma-protein metabolism, not elsewhere classified; K21.9 Gastro-esophageal reflux disease without esophagitis; N18.31 Chronic kidney disease, stage 3a; E78.5 Hyperlipidemia, unspecified; F41.9 Anxiety disorder, unspecified; R13.10 Dysphagia, unspecified; T50.2X5A Adverse effect of carbonic-anhydrase inhibitors, benzothiadiazides and other diuretics, initial encounter; R53.81 Other malaise; R26.9 Unspecified abnormalities of gait and mobility; R74.01 Elevation of levels of liver transaminase levels; E03.9 Hypothyroidism, unspecified; Y82.8 Other medical devices associated with adverse incidents; Z20.822 Contact with and (suspected) exposure to COVID-19; Z78.9 Other specified health status; Z79.01 Long term (current) use of anticoagulants; Z82.49 Family history of ischemic heart disease and other diseases of the circulatory system; Z83.3 Family history of diabetes mellitus; I25.2 Old myocardial infarction; Z87.891 Personal history of nicotine dependence; Z68.29 Body mass index [BMI] 29.0-29.9, adult; Z95.5 Presence of coronary angioplasty implant and graft; Z95.810 Presence of automatic (implantable) cardiac defibrillator; Y92.89 Other specified places as the place of occurrence of the external cause; Z79.899 Other long term (current) drug therapy; Z88.5 Allergy status to narcotic agent; I25.5 Ischemic cardiomyopathy
CPT/HCPCS: 33225; 33249; 36415; 36600; 71045; 75820; 76770; 80048; 80053; 80061; 82375; 82550; 82553; 82805; 82962; 83735; 83880; 84145; 84443; 84478; 84484; 85025; 85379; 87426; 92610; 93005; 93306; 93451; 93458; 93641; 93970; 94002; 94003; 97162; 97166; 97530; 97535; 99285; A6261; C1726; C1769; C1882; C1887; C1892; C1893; C1898; C1899; C1900; J0330; J0690; J1200; J1580; J1644; J1650; J1940; J2250; J2370; J2405; J2704; J2710; J2765; J2930; J3010; J3475; J3490; J7040; J7050; J7070; J7608; Q9967; U0003; A4315

== ENCOUNTER 2020-05-15 22:20 | Inpatient (IN) | payer MEDICARE, MEDICAID ==
[~2020-05-15] VITALS: Ht 167.6 cm; Wt 82.6 kg
[2020-05-15 22:20] VITALS: BP 133/76
[2020-05-15] MEDS ORDERED: MAGNESIUM/ALUMINUM HYDROXIDE/SIMETHICONE 30ML UDC PO PRN (23:30)
[2020-05-15] MEDS ORDERED: ONDANSETRON HCL 4MG/2ML INJ IV PRN (23:30)
[2020-05-15] MEDS ORDERED: ATROPINE SULFATE 1MG/ML VIAL IV PRN (23:30)
[2020-05-15] MEDS ORDERED: ACETAMINOPHEN 325MG TABLET PO PRN ×3 (23:30)
[2020-05-15] MEDS ORDERED: CLONIDINE 0.1MG TABLET PO PRN (23:30)
[2020-05-15] MEDS ORDERED: DIPHENHYDRAMINE 50MG/ML VIAL IV PRN (23:30)
[2020-05-15] MEDS ORDERED: GUAIFENESIN 200MG/10ML SUGAR FREE UDC PO PRN (23:30)
[2020-05-16] MEDS ORDERED: ATROPINE SULFATE 1MG/10ML SYR IV PRN (01:00)
[2020-05-16 03:58] VITALS: BP 133/76
[2020-05-16] MEDS ORDERED: SODIUM CHLORIDE 0.9% INJ 3ML FLUSH IVF SCH (06:00)
[2020-05-16 08:00] VITALS: BP 134/87
[2020-05-16] MEDS: CARVEDILOL 12.5MG TABLET PO SCH ×2 (08:25→20:33)
[2020-05-16] MEDS: ASPIRIN 81MG TABLET PO SCH (08:25)
[2020-05-16] MEDS: DOCUSATE SODIUM 250MG CAPSULE PO SCH (08:26)
[2020-05-16] MEDS: FUROSEMIDE 20MG TABLET PO SCH (08:26)
[2020-05-16] MEDS: SPIRONOLACTONE 25MG TABLET PO SCH (08:26)
[2020-05-16] MEDS: DILTIAZEM HCL 30MG TABLET PO SCH ×5 (08:26→23:36)
[2020-05-16] MEDS: NITROGLYCERIN OINT 1GM/INCH UDPKT TD SCH ×4 (08:27→17:41)
[2020-05-16] MEDS: LOSARTAN POTASSIUM 50 MG TABLET PO SCH ×2 (08:27→20:33)
[2020-05-16] MEDS ORDERED: POTASSIUM CHLORIDE 20MEQ/PACKET PO SCH (09:00)
[2020-05-16] MEDS ORDERED: METHYLPREDNISOLONE SOD SUCC 125 MG/2 ML VIAL IV SCH (09:00)
[2020-05-16] MEDS ORDERED: DIPHENHYDRAMINE 25MG CAPSULE PO PRN (09:15)
[2020-05-16] MEDS ORDERED: ONDANSETRON HCL 4MG TABLET PO PRN (09:15)
[2020-05-16 09:38] LABS: BASOPHILS % 0.2 % (0.0-2.0); EOSINOPHILS % 0.9 % (0.0-5.0); HEMATOCRIT. 41.6 % (36.0-48.0); HEMOGLOBIN. 13.2 g/dL (12.0-16.0); LYMPHOCYTES % 19.1 % (20.0-50.0); MEAN CORPUSCULAR HEMOGLOBIN 28.4 pg (28.0-32.0); MEAN CORPUSCULAR VOLUME 89.3 fL (81.0-99.0); MONOCYTES % 7.7 % (2.0-8.0); NEUTROPHILS % 72.1 % (40.0-76.0); PLATELET 182 x1000/uL (130-400); RED BLOOD CELL COUNT 4.66 mill/uL (4.2-5.4); RED CELL DISTRIBUTION WIDTH 13.9 % (11.6-14.6)
[2020-05-16] MEDS: PREDNISONE 20MG TABLET PO SCH (13:19)
[2020-05-16] MEDS: APIXABAN 5 MG TABLET PO SCH ×2 (13:19→17:40)
[2020-05-16 15:40] LABS: CHLORIDE 99 mEq/L (98-107)
[2020-05-16 20:00] VITALS: BP 142/86
[2020-05-16 23:33] LABS: CLARITY URINE CLEAR (CLEAR); COLOR URINE YELLOW (YELLOW); KETONES URINE NEGATIVE (NEGATIVE); LEUKOCYTE ESTERASE URINE TRACE (NEGATIVE); NITRITE URINE NEGATIVE (NEGATIVE); OCCULT BLOOD URINE 2+ (NEGATIVE); PH URINE 6.5 (4.5-8.0); PROTEIN URINE 2+ (NEGATIVE); SPECIFIC GRAVITY URINE 1.014 (1.005-1.030)
[2020-05-16] MEDS: ZOLPIDEM TARTRATE 5MG TABLET PO PRN (23:36)
[2020-05-17] MEDS: NITROGLYCERIN OINT 1GM/INCH UDPKT TD SCH ×5 (00:51→23:53)
[2020-05-17] MEDS: DILTIAZEM HCL 30MG TABLET PO SCH ×4 (05:48→23:54)
[2020-05-17 08:03] VITALS: BP 123/82
[2020-05-17 08:08] LABS: HEMATOCRIT. 37.3 % (36.0-48.0); MEAN CORPUSCULAR HEMOGLOBIN 28.5 pg (28.0-32.0); MEAN CORPUSCULAR VOLUME 88.8 fL (81.0-99.0); MEAN PLATELET VOLUME 9.7 fl (7.4-10.4); PLATELET 211 x1000/uL (130-400); RED BLOOD CELL COUNT 4.21 mill/uL (4.2-5.4); RED CELL DISTRIBUTION WIDTH 13.7 % (11.6-14.6)
[2020-05-17 09:01] LABS: VITAMIN B12 SERUM 1528 pg/mL (211-911)
[2020-05-17 09:08] LABS: FOLIC ACID (FOLATE) SERUM > 20.00 ng/mL (>5.38)
[2020-05-17] MEDS: ASPIRIN 81MG TABLET PO SCH (09:19)
[2020-05-17] MEDS: DOCUSATE SODIUM 250MG CAPSULE PO SCH (09:19)
[2020-05-17] MEDS: SPIRONOLACTONE 25MG TABLET PO SCH (09:20)
[2020-05-17] MEDS: FUROSEMIDE 20MG TABLET PO SCH (09:20)
[2020-05-17] MEDS: LOSARTAN POTASSIUM 50 MG TABLET PO SCH ×2 (09:20→21:16)
[2020-05-17] MEDS: CARVEDILOL 12.5MG TABLET PO SCH ×2 (09:20→21:17)
[2020-05-17] MEDS: APIXABAN 5 MG TABLET PO SCH ×2 (09:20→17:33)
[2020-05-17] MEDS: PREDNISONE 20MG TABLET PO SCH (09:20)
[2020-05-17 09:32] LABS: CHLORIDE 100 mEq/L (98-107)
[2020-05-17 09:42] LABS: PHOSPHORUS 2.8 mg/dL (2.5-4.9)
[2020-05-17 09:46] LABS: TOTAL IRON BINDING CAPACITY 233 ug/dL (250-450)
[2020-05-17 11:50] LABS: FERRITIN 430 ng/mL (10-291)
[2020-05-17 15:33] LABS: HEPATITIS B SURFACE ANTIGEN NEGATIVE
[2020-05-17 16:03] LABS: HEPATITIS A AB IGM NEGATIVE (NEGATIVE)
[2020-05-17 20:00] VITALS: BP 124/72
[2020-05-17 23:01] LABS: PLATELET ESTIMATE NORMAL
[2020-05-17] MEDS: ZOLPIDEM TARTRATE 5MG TABLET PO PRN (23:54)
[2020-05-18] MEDS: NITROGLYCERIN OINT 1GM/INCH UDPKT TD SCH ×4 (05:51→23:54)
[2020-05-18] MEDS: DILTIAZEM HCL 30MG TABLET PO SCH ×4 (05:51→23:54)
[2020-05-18 08:00] VITALS: BP 113/71
[2020-05-18] MEDS: APIXABAN 5 MG TABLET PO SCH ×2 (08:16→17:44)
[2020-05-18] MEDS: ASPIRIN 81MG TABLET PO SCH (08:16)
[2020-05-18] MEDS: LOSARTAN POTASSIUM 50 MG TABLET PO SCH ×2 (08:16→21:51)
[2020-05-18] MEDS: SPIRONOLACTONE 25MG TABLET PO SCH (08:16)
[2020-05-18] MEDS: DOCUSATE SODIUM 250MG CAPSULE PO SCH (08:16)
[2020-05-18] MEDS: FUROSEMIDE 20MG TABLET PO SCH (08:16)
[2020-05-18] MEDS: PREDNISONE 20MG TABLET PO SCH (08:16)
[2020-05-18] MEDS: CARVEDILOL 12.5MG TABLET PO SCH ×2 (08:17→21:48)
[2020-05-18] MEDS: THROAT LOZENGES-BENZOCAINE/MENTH/CETYLPYRD CL LOZENGES MM PRN ×2 (15:08→21:53)
[2020-05-18 20:00] VITALS: BP 121/79
[2020-05-18] MEDS: ZOLPIDEM TARTRATE 5MG TABLET PO PRN (21:51)
[2020-05-19] MEDS: DILTIAZEM HCL 30MG TABLET PO SCH ×3 (06:30→17:12)
[2020-05-19] MEDS: NITROGLYCERIN OINT 1GM/INCH UDPKT TD SCH ×4 (06:31→23:49)
[2020-05-19 07:43] LABS: CHLORIDE 102 mEq/L (98-107)
[2020-05-19 08:09] VITALS: BP 125/68
[2020-05-19] MEDS: SPIRONOLACTONE 25MG TABLET PO SCH (08:50)
[2020-05-19] MEDS: APIXABAN 5 MG TABLET PO SCH ×2 (08:50→17:12)
[2020-05-19] MEDS: CARVEDILOL 12.5MG TABLET PO SCH ×2 (08:50→22:15)
[2020-05-19] MEDS: ASPIRIN 81MG TABLET PO SCH (08:50)
[2020-05-19] MEDS: FUROSEMIDE 20MG TABLET PO SCH (08:50)
[2020-05-19] MEDS: PREDNISONE 20MG TABLET PO SCH (08:50)
[2020-05-19] MEDS: LOSARTAN POTASSIUM 50 MG TABLET PO SCH ×2 (08:51→22:29)
[2020-05-19] MEDS: THROAT LOZENGES-BENZOCAINE/MENTH/CETYLPYRD CL LOZENGES MM PRN ×3 (08:51→23:49)
[2020-05-19 12:13] VITALS: BP 125/59
[2020-05-19 16:54] VITALS: BP 122/77
[2020-05-19 20:00] VITALS: BP 140/74
[2020-05-19] MEDS: ZOLPIDEM TARTRATE 5MG TABLET PO PRN (23:55)
[2020-05-20] MEDS: DILTIAZEM HCL 30MG TABLET PO SCH ×5 (06:16→23:33)
[2020-05-20] MEDS: NITROGLYCERIN OINT 1GM/INCH UDPKT TD SCH ×4 (06:17→23:38)
[2020-05-20] MEDS: THROAT LOZENGES-BENZOCAINE/MENTH/CETYLPYRD CL LOZENGES MM PRN (06:21)
[2020-05-20 08:00] VITALS: BP 113/68
[2020-05-20] MEDS: APIXABAN 5 MG TABLET PO SCH ×2 (09:32→17:25)
[2020-05-20] MEDS: SPIRONOLACTONE 25MG TABLET PO SCH (09:32)
[2020-05-20] MEDS: ASPIRIN 81MG TABLET PO SCH (09:32)
[2020-05-20] MEDS: FUROSEMIDE 20MG TABLET PO SCH (09:32)
[2020-05-20] MEDS: LOSARTAN POTASSIUM 50 MG TABLET PO SCH ×2 (09:32→21:00)
[2020-05-20] MEDS: CARVEDILOL 12.5MG TABLET PO SCH ×2 (09:33→21:00)
[2020-05-20] MEDS: PREDNISONE 20MG TABLET PO SCH (09:33)
[2020-05-20 20:00] VITALS: BP 108/56
[2020-05-21] MEDS: DILTIAZEM HCL 30MG TABLET PO SCH ×4 (05:41→23:56)
[2020-05-21] MEDS: NITROGLYCERIN OINT 1GM/INCH UDPKT TD SCH ×4 (05:41→23:57)
[2020-05-21 08:00] VITALS: BP 130/76
[2020-05-21 08:06] LABS: BASOPHILS % 0.1 % (0.0-2.0); EOSINOPHILS % 0.4 % (0.0-5.0); HEMATOCRIT. 35.7 % (36.0-48.0); HEMOGLOBIN. 11.7 g/dL (12.0-16.0); MEAN CORPUSCULAR VOLUME 88.5 fL (81.0-99.0); MEAN PLATELET VOLUME 9.4 fl (7.4-10.4); MONOCYTES % 10.1 % (2.0-8.0); NEUTROPHILS % 75.4 % (40.0-76.0); PLATELET 219 x1000/uL (130-400); RED BLOOD CELL COUNT 4.03 mill/uL (4.2-5.4); RED CELL DISTRIBUTION WIDTH 14.8 % (11.6-14.6)
[2020-05-21 08:23] LABS: CHLORIDE 102 mEq/L (98-107)
[2020-05-21] MEDS: FUROSEMIDE 20MG TABLET PO SCH (08:41)
[2020-05-21] MEDS: PREDNISONE 20MG TABLET PO SCH (08:41)
[2020-05-21] MEDS: SPIRONOLACTONE 25MG TABLET PO SCH (08:41)
[2020-05-21] MEDS: ASPIRIN 81MG TABLET PO SCH (08:41)
[2020-05-21] MEDS: APIXABAN 5 MG TABLET PO SCH (08:42)
[2020-05-21] MEDS: CARVEDILOL 12.5MG TABLET PO SCH ×2 (08:42→21:01)
[2020-05-21] MEDS: LOSARTAN POTASSIUM 50 MG TABLET PO SCH ×2 (08:42→21:01)
[2020-05-21] MEDS: ZOLPIDEM TARTRATE 5MG TABLET PO PRN (23:56)
[2020-05-22] MEDS: NITROGLYCERIN OINT 1GM/INCH UDPKT TD SCH ×3 (05:28→17:33)
[2020-05-22] MEDS: DILTIAZEM HCL 30MG TABLET PO SCH ×3 (05:28→17:34)
[2020-05-22 08:06] VITALS: BP 130/78
[2020-05-22] MEDS: LOSARTAN POTASSIUM 50 MG TABLET PO SCH ×2 (09:36→21:52)
[2020-05-22] MEDS: PREDNISONE 20MG TABLET PO SCH (09:36)
[2020-05-22] MEDS: SPIRONOLACTONE 25MG TABLET PO SCH (09:36)
[2020-05-22] MEDS: CARVEDILOL 12.5MG TABLET PO SCH ×2 (09:36→21:52)
[2020-05-22] MEDS: FUROSEMIDE 20MG TABLET PO SCH (09:36)
[2020-05-22] MEDS: ASPIRIN 81MG TABLET PO SCH (09:36)
[2020-05-22] MEDS: APIXABAN 5 MG TABLET PO SCH ×2 (12:17→17:33)
[2020-05-22 20:00] VITALS: BP 117/62
[2020-05-23] MEDS: DILTIAZEM HCL 30MG TABLET PO SCH ×3 (00:03→09:03)
[2020-05-23] MEDS: ZOLPIDEM TARTRATE 5MG TABLET PO PRN (00:03)
[2020-05-23] MEDS: NITROGLYCERIN OINT 1GM/INCH UDPKT TD SCH ×3 (00:03→12:07)
[2020-05-23 08:00] VITALS: BP 128/91
[2020-05-23] MEDS: LOSARTAN POTASSIUM 50 MG TABLET PO SCH (08:11)
[2020-05-23] MEDS: FUROSEMIDE 20MG TABLET PO SCH (08:11)
[2020-05-23] MEDS: SPIRONOLACTONE 25MG TABLET PO SCH (08:11)
[2020-05-23] MEDS: APIXABAN 5 MG TABLET PO SCH (08:11)
[2020-05-23] MEDS: CARVEDILOL 12.5MG TABLET PO SCH (08:12)
[2020-05-23] MEDS: ASPIRIN 81MG TABLET PO SCH (08:12)
[2020-05-23] MEDS: PREDNISONE 20MG TABLET PO SCH (08:12)
[2020-05-23] MEDS ORDERED: OMEPRAZOLE 20MG CAPSULE EXTENDED RELEASE PO SCH (09:15)
[2020-05-23 09:20] VITALS: BP 132/91
[2020-05-23] MEDS ORDERED: HYDROCODONE/ACETAMINOPHEN 5/325MG TABLET PO PRN (09:30)
[2020-05-23 09:45] VITALS: BP 135/92
[2020-05-23] MEDS ORDERED: DILTIAZEM HCL 60MG TABLET PO SCH (12:00)
[2020-05-23 15:06] LABS: 25-HYDROXY VITAMIN D3 37 ng/mL (.)
== END 2020-05-23 12:15 | DRG 948 ==
PROVIDERS: ADMIT Physical Medicine & Rehabilitation Spinal Cord Injury Medicine; ATTEND Internal Medicine
DX: R53.81 Other malaise (principal); I50.9 Heart failure, unspecified; N17.9 Acute kidney failure, unspecified; I13.0 Hypertensive heart and chronic kidney disease with heart failure and stage 1 through stage 4 chronic kidney disease, or unspecified chronic kidney disease; I42.9 Cardiomyopathy, unspecified; I48.20 Chronic atrial fibrillation, unspecified; E03.9 Hypothyroidism, unspecified; E66.9 Obesity, unspecified; E78.00 Pure hypercholesterolemia, unspecified; I25.10 Atherosclerotic heart disease of native coronary artery without angina pectoris; K76.0 Fatty (change of) liver, not elsewhere classified; N18.9 Chronic kidney disease, unspecified; R13.10 Dysphagia, unspecified; T50.2X5A Adverse effect of carbonic-anhydrase inhibitors, benzothiadiazides and other diuretics, initial encounter; Z20.822 Contact with and (suspected) exposure to COVID-19; Z79.01 Long term (current) use of anticoagulants
CPT/HCPCS: 36415; 76700; 80048; 80053; 80076; 81003; 82248; 82306; 82607; 82728; 82746; 82962; 83540; 83550; 83735; 84100; 84134; 84443; 85025; 86705; 86709; 86803; 87340; 92610; 93005; 93970; 97110; 97116; 97162; 97166; 97530; 97535; J7512

== ENCOUNTER 2020-07-22 16:33 | Inpatient (IN) | payer OTHER, MEDICAID ==
[~2020-07-22] VITALS: Ht 160 cm; Wt 79.0 kg
[2020-07-22] MEDS ORDERED: ACETAMINOPHEN 325MG TABLET PO ONE (18:15)
[2020-07-22 20:34] LABS: BASOPHILS % 1.1 % (0.0-2.0); EOSINOPHILS % 2.7 % (0.0-5.0); HEMATOCRIT. 38.2 % (36.0-48.0); HEMOGLOBIN. 12.5 g/dL (12.0-16.0); LYMPHOCYTES % 26.1 % (20.0-50.0); MEAN CORPUSCULAR HEMOGLOBIN 29.1 pg (28.0-32.0); MEAN CORPUSCULAR VOLUME 88.6 fL (81.0-99.0); MEAN PLATELET VOLUME 8.4 fl (7.4-10.4); MONOCYTES % 14.2 % (2.0-8.0); NEUTROPHILS % 55.9 % (40.0-76.0); PLATELET 201 x1000/uL (130-400); RED BLOOD CELL COUNT 4.31 mill/uL (4.2-5.4); RED CELL DISTRIBUTION WIDTH 16.1 % (11.6-14.6)
[2020-07-22 20:44] LABS: CHLORIDE 104 mEq/L (98-107)
[2020-07-23] MEDS ORDERED: ACETAMINOPHEN 325MG TABLET PO PRN ×2 (01:15)
[2020-07-23] MEDS ORDERED: CLONIDINE 0.1MG TABLET PO PRN (01:15)
[2020-07-23] MEDS ORDERED: GUAIFENESIN 200MG/10ML SUGAR FREE UDC PO PRN (01:15)
[2020-07-23] MEDS ORDERED: TRAMADOL 50MG TABLET PO PRN (01:15)
[2020-07-23] MEDS ORDERED: ONDANSETRON HCL 4MG/2ML INJ IV PRN (01:15)
[2020-07-23] MEDS ORDERED: MAGNESIUM/ALUMINUM HYDROXIDE/SIMETHICONE 30ML UDC PO PRN (01:15)
[2020-07-23] MEDS ORDERED: DIPHENHYDRAMINE 50MG/ML VIAL IV PRN (01:15)
[2020-07-23] MEDS ORDERED: ZOLPIDEM TARTRATE 5MG TABLET PO PRN (01:15)
[2020-07-23 04:55] VITALS: BP 119/73
[2020-07-23] MEDS: SODIUM CHLORIDE 0.9% INJ 3ML FLUSH IVF SCH ×3 (06:13→21:41)
[2020-07-23 08:00] VITALS: BP 118/66
[2020-07-23] MEDS: APIXABAN 5 MG TABLET PO SCH ×2 (09:20→17:25)
[2020-07-23] MEDS: OMEPRAZOLE 20MG CAPSULE EXTENDED RELEASE PO SCH (09:20)
[2020-07-23] MEDS: DILTIAZEM HCL 180MG CAPSULE CD 24HR PO SCH (09:20)
[2020-07-23] MEDS: CARVEDILOL 12.5MG TABLET PO SCH ×2 (09:20→21:41)
[2020-07-23 12:00] VITALS: BP 108/56
[2020-07-23 16:00] VITALS: BP 112/58
[2020-07-23] MEDS: DIGOXIN 125MCG TABLET PO SCH (17:25)
[2020-07-23 20:00] VITALS: BP 121/63
[2020-07-24 00:39] VITALS: BP 105/65
[2020-07-24 04:00] VITALS: BP 106/54
[2020-07-24] MEDS: SODIUM CHLORIDE 0.9% INJ 3ML FLUSH IVF SCH ×2 (06:21→13:21)
[2020-07-24] MEDS: OMEPRAZOLE 20MG CAPSULE EXTENDED RELEASE PO SCH (06:21)
[2020-07-24 08:00] VITALS: BP 106/55
[2020-07-24] MEDS: DILTIAZEM HCL 180MG CAPSULE CD 24HR PO SCH (08:31)
[2020-07-24] MEDS: CARVEDILOL 12.5MG TABLET PO SCH (08:31)
[2020-07-24] MEDS: APIXABAN 5 MG TABLET PO SCH ×2 (08:32→17:25)
[2020-07-24 12:00] VITALS: BP 114/60
[2020-07-24 16:00] VITALS: BP 112/64
[2020-07-24] MEDS: DIGOXIN 125MCG TABLET PO SCH (17:24)
== END 2020-07-24 18:42 | disposition left against medical advice (07) | DRG 551 ==
LOC: ER 16:33 → 6WST 22:11 → ENRESERV 07-23 02:36 → 6WST 07-23 03:59
PROVIDERS: ADMIT Internal Medicine; ATTEND Internal Medicine
DX: M48.061 Spinal stenosis, lumbar region without neurogenic claudication (principal); N17.0 Acute kidney failure with tubular necrosis; I13.0 Hypertensive heart and chronic kidney disease with heart failure and stage 1 through stage 4 chronic kidney disease, or unspecified chronic kidney disease; I48.20 Chronic atrial fibrillation, unspecified; I50.22 Chronic systolic (congestive) heart failure; E87.1 Hypo-osmolality and hyponatremia; M48.03 Spinal stenosis, cervicothoracic region; M51.16 Intervertebral disc disorders with radiculopathy, lumbar region; E03.9 Hypothyroidism, unspecified; K21.9 Gastro-esophageal reflux disease without esophagitis; N18.2 Chronic kidney disease, stage 2 (mild); M51.17 Intervertebral disc disorders with radiculopathy, lumbosacral region; E78.00 Pure hypercholesterolemia, unspecified; E87.5 Hyperkalemia; I25.10 Atherosclerotic heart disease of native coronary artery without angina pectoris; F17.210 Nicotine dependence, cigarettes, uncomplicated; M48.02 Spinal stenosis, cervical region; E66.9 Obesity, unspecified; M48.07 Spinal stenosis, lumbosacral region; Z53.21 Procedure and treatment not carried out due to patient leaving prior to being seen by health care provider; M50.30 Other cervical disc degeneration, unspecified cervical region; Z82.49 Family history of ischemic heart disease and other diseases of the circulatory system; Z86.73 Personal history of transient ischemic attack (TIA), and cerebral infarction without residual deficits; Z88.5 Allergy status to narcotic agent; Z79.899 Other long term (current) drug therapy; Z83.3 Family history of diabetes mellitus; Z95.810 Presence of automatic (implantable) cardiac defibrillator; Z68.30 Body mass index [BMI] 30.0-30.9, adult; V49.9XXA Car occupant (driver) (passenger) injured in unspecified traffic accident, initial encounter
CPT/HCPCS: 36415; 71045; 72131; 72170; 73552; 73560; 80048; 80053; 83880; 84484; 85025; 93005; 97112; 97116; 97162; 97166; 97530; 99285

== ENCOUNTER 2021-05-20 18:05 | Inpatient (IN) | payer MEDICARE, MEDICAID ==
[~2021-05-20] VITALS: Ht 161.3 cm; Wt 77.6 kg
[~2021-05-20 18:05] MED LIST: APIX5TAB PO; ATOR20TA65 MT; CARV12.545 MT; CINA30 MT; DIGO125T80 PO; FOLI-43 MT; HYDR-4133 MT; OMEP20TA2 MT; SACU1TAB MT; SPIR25TA6 MT
[2021-05-20] MEDS ORDERED: NITROGLYCERIN OINT 1GM/INCH UDPKT TD ONE (19:00)
[2021-05-20] MEDS ORDERED: AZITHROMYCIN 500MG/250ML 250 ML IV ONE (20:00)
[2021-05-20] MEDS ORDERED: CEFTRIAXONE 1 G PREMIX 50 ML IV ONE (20:00)
[2021-05-20 21:18] LABS: BASOPHILS % 0.6 % (0.0-2.0); EOSINOPHILS % 0.3 % (0.0-5.0); HEMATOCRIT. 32.9 % (36.0-48.0); HEMOGLOBIN. 10.7 g/dL (12.0-16.0); LYMPHOCYTES % 13.2 % (20.0-50.0); MEAN CORPUSCULAR HEMOGLOBIN 28.6 pg (28.0-32.0); MEAN CORPUSCULAR VOLUME 88.1 fL (81.0-99.0); MEAN PLATELET VOLUME 10.8 fl (7.4-10.4); NEUTROPHILS % 75.9 % (40.0-76.0); PLATELET 181 x1000/uL (130-400); RED BLOOD CELL COUNT 3.74 mill/uL (4.2-5.4); RED CELL DISTRIBUTION WIDTH 13.4 % (11.6-14.6)
[2021-05-20 21:20] LABS: CHLORIDE 103 mEq/L (98-107)
[2021-05-20] MEDS ORDERED: ONDANSETRON HCL 4MG/2ML INJ IV ONE (23:15)
[2021-05-21] MEDS ORDERED: HYDROCODONE/ACETAMINOPHEN 5/325MG TABLET PO PRN (00:30)
[2021-05-21] MEDS ORDERED: CLONIDINE 0.1MG TABLET PO PRN (00:30)
[2021-05-21] MEDS ORDERED: FUROSEMIDE 40MG/4ML VIAL IV SCH (00:30)
[2021-05-21] MEDS ORDERED: GUAIFENESIN 200MG/10ML SUGAR FREE UDC PO PRN (00:30)
[2021-05-21] MEDS ORDERED: DOCUSATE SODIUM 100MG CAPSULE PO PRN (00:30)
[2021-05-21] MEDS ORDERED: ACETAMINOPHEN 325MG TABLET PO PRN (00:30)
[2021-05-21] MEDS ORDERED: NALOXONE HCL 0.4MG/ML VIAL IV PRN (01:00)
[2021-05-21 05:55] LABS: DIGOXIN 0.3 ng/mL (0.9-2.0)
[2021-05-21] MEDS: AMLODIPINE 10MG TABLET PO SCH (08:58)
[2021-05-21] MEDS ORDERED: ENOXAPARIN 30MG/0.3ML SYR SUBCUT SCH (09:00)
[2021-05-21] MEDS ORDERED: APIXABAN 5 MG TABLET PO SCH (13:15)
[2021-05-21] MEDS: ATORVASTATIN CALCIUM 20MG TABLET PO SCH (13:22)
[2021-05-21] MEDS: SPIRONOLACTONE 25MG TABLET PO SCH (13:22)
[2021-05-21] MEDS: OMEPRAZOLE 20MG CAPSULE EXTENDED RELEASE PO SCH (13:22)
[2021-05-21] MEDS: FOLIC ACID 1MG TABLET PO SCH (13:53)
[2021-05-21] MEDS: CINACALCET HCL 30MG TABLET PO SCH (13:53)
[2021-05-21] MEDS ORDERED: FUROSEMIDE 20MG TABLET PO SCH (17:00)
[2021-05-21] MEDS ORDERED: DIGOXIN 125MCG TABLET PO SCH (18:00)
[2021-05-21] MEDS: HYDRALAZINE HCL 10MG TABLET PO SCH (18:58)
[2021-05-21] MEDS: CALCIUM ACETATE 667MG CAPSULE PO SCH (18:58)
[2021-05-21] MEDS: APIXABAN 5 MG TABLET PO SCH (18:58)
[2021-05-21 22:00] VITALS: BP 136/74
[2021-05-21 22:30] VITALS: BP 136/74
[2021-05-21] MEDS: CARVEDILOL 12.5MG TABLET PO SCH (23:52)
[2021-05-22] VITALS: BP 117/62
[2021-05-22 04:00] VITALS: BP 111/56
[2021-05-22 08:07] VITALS: BP 123/96
[2021-05-22] MEDS: CALCIUM ACETATE 667MG CAPSULE PO SCH ×2 (08:26→16:50)
[2021-05-22] MEDS: AMLODIPINE 10MG TABLET PO SCH (08:26)
[2021-05-22] MEDS: FOLIC ACID 1MG TABLET PO SCH (08:26)
[2021-05-22] MEDS: ATORVASTATIN CALCIUM 20MG TABLET PO SCH (08:26)
[2021-05-22] MEDS: FUROSEMIDE 40MG/4ML VIAL IV SCH (08:26)
[2021-05-22] MEDS: APIXABAN 5 MG TABLET PO SCH ×2 (08:27→16:50)
[2021-05-22] MEDS: HYDRALAZINE HCL 10MG TABLET PO SCH ×3 (08:27→16:50)
[2021-05-22] MEDS: OMEPRAZOLE 20MG CAPSULE EXTENDED RELEASE PO SCH (08:27)
[2021-05-22] MEDS: SPIRONOLACTONE 25MG TABLET PO SCH (08:27)
[2021-05-22] MEDS: CARVEDILOL 12.5MG TABLET PO SCH ×2 (08:27→20:56)
[2021-05-22] MEDS: CINACALCET HCL 30MG TABLET PO SCH (08:29)
[2021-05-22 08:42] LABS: BASOPHILS % 0.8 % (0.0-2.0); EOSINOPHILS % 5.9 % (0.0-5.0); HEMATOCRIT. 29.5 % (36.0-48.0); HEMOGLOBIN. 9.7 g/dL (12.0-16.0); LYMPHOCYTES % 23.9 % (20.0-50.0); MEAN CORPUSCULAR VOLUME 88.5 fL (81.0-99.0); MEAN PLATELET VOLUME 10.5 fl (7.4-10.4); MONOCYTES % 13.6 % (2.0-8.0); NEUTROPHILS % 55.8 % (40.0-76.0); PLATELET 164 x1000/uL (130-400); RED BLOOD CELL COUNT 3.33 mill/uL (4.2-5.4); RED CELL DISTRIBUTION WIDTH 13.3 % (11.6-14.6)
[2021-05-22 08:58] LABS: CHLORIDE 107 mEq/L (98-107)
[2021-05-22 09:15] LABS: LDL CHOLESTEROL 77 mg/dL (5-100)
[2021-05-22 09:16] LABS: HDL CHOLESTEROL 38 mg/dL (40-59)
[2021-05-22 12:00] VITALS: BP 107/65
[2021-05-22 16:06] VITALS: BP 110/59
[2021-05-22 20:00] VITALS: BP 111/67
[2021-05-23] VITALS: BP 109/56
[2021-05-23 04:00] VITALS: BP 132/60
[2021-05-23] MEDS ORDERED: FAMOTIDINE 20MG TABLET PO SCH (07:10)
[2021-05-23 08:00] VITALS: BP 124/71
[2021-05-23 08:22] LABS: CHLORIDE 105 mEq/L (98-107)
[2021-05-23 08:24] LABS: HEMATOCRIT. 27.7 % (36.0-48.0); HEMOGLOBIN. 9.3 g/dL (12.0-16.0); MEAN CORPUSCULAR HEMOGLOBIN 29.3 pg (28.0-32.0); MEAN CORPUSCULAR VOLUME 87.7 fL (81.0-99.0); MEAN PLATELET VOLUME 10.2 fl (7.4-10.4); PLATELET 178 x1000/uL (130-400); RED BLOOD CELL COUNT 3.16 mill/uL (4.2-5.4); RED CELL DISTRIBUTION WIDTH 13.2 % (11.6-14.6)
[2021-05-23] MEDS: FUROSEMIDE 40MG/4ML VIAL IV SCH (10:24)
[2021-05-23] MEDS: APIXABAN 5 MG TABLET PO SCH (10:24)
[2021-05-23] MEDS: CALCIUM ACETATE 667MG CAPSULE PO SCH (10:25)
[2021-05-23] MEDS: FOLIC ACID 1MG TABLET PO SCH (10:25)
[2021-05-23] MEDS: CARVEDILOL 12.5MG TABLET PO SCH (10:26)
[2021-05-23] MEDS: CINACALCET HCL 30MG TABLET PO SCH (10:26)
[2021-05-23] MEDS: ATORVASTATIN CALCIUM 20MG TABLET PO SCH (10:26)
[2021-05-23] MEDS: HYDRALAZINE HCL 10MG TABLET PO SCH ×2 (10:27→13:44)
[2021-05-23] MEDS: AMLODIPINE 10MG TABLET PO SCH (10:28)
[2021-05-23] MEDS: SPIRONOLACTONE 25MG TABLET PO SCH (10:28)
[2021-05-23] MEDS ORDERED: MAGNESIUM 1 G PREMIX 100 ML IV NR (10:30)
[2021-05-23] MEDS: MAGNESIUM OXIDE 400MG TABLET PO SCH ×2 (10:46→12:09)
[2021-05-23] MEDS ORDERED: FUROSEMIDE 40MG TABLET PO SCH (11:00)
[2021-05-23 11:56] LABS: PLATELET ESTIMATE NORMAL
[2021-05-23 12:00] VITALS: BP 127/71
[2021-05-23 12:23] VITALS: BP 152/59
== END 2021-05-23 15:00 | disposition home or self-care (01) | DRG 291 ==
LOC: ER 18:05 → MICUSO 22:16 → EDBEDREQTM 22:17 → EDBEDREQ 22:17 → 8WST 05-21 21:58
PROVIDERS: ADMIT Hospitalist; ATTEND Hospitalist
PROC: 4B02XTZ Measurement of Cardiac Defibrillator, External Approach (ICD-10-PCS; principal; 2021-05-22)
DX: I13.0 Hypertensive heart and chronic kidney disease with heart failure and stage 1 through stage 4 chronic kidney disease, or unspecified chronic kidney disease (principal); I50.23 Acute on chronic systolic (congestive) heart failure; E46 Unspecified protein-calorie malnutrition; N18.4 Chronic kidney disease, stage 4 (severe); N17.9 Acute kidney failure, unspecified; I25.10 Atherosclerotic heart disease of native coronary artery without angina pectoris; I48.91 Unspecified atrial fibrillation; D64.9 Anemia, unspecified; E83.51 Hypocalcemia; I25.5 Ischemic cardiomyopathy; K21.9 Gastro-esophageal reflux disease without esophagitis; R09.02 Hypoxemia; Z82.49 Family history of ischemic heart disease and other diseases of the circulatory system; Z86.73 Personal history of transient ischemic attack (TIA), and cerebral infarction without residual deficits; I25.2 Old myocardial infarction; Z87.891 Personal history of nicotine dependence; Z68.29 Body mass index [BMI] 29.0-29.9, adult; Z79.899 Other long term (current) drug therapy; Z88.0 Allergy status to penicillin; Z95.810 Presence of automatic (implantable) cardiac defibrillator; Z20.822 Contact with and (suspected) exposure to COVID-19
CPT/HCPCS: 36415; 71045; 80053; 80061; 80162; 82728; 83605; 83735; 83880; 84145; 84484; 85025; 86140; 87426; 93970; 99291; J0456; J0696; J1650; J1940; J2405; J3475

== ENCOUNTER 2021-10-17 09:38 | Inpatient (IN) | payer MEDICARE, MEDICAID ==
[~2021-10-17] VITALS: Ht 160 cm; Wt 75.7 kg
[~2021-10-17 09:38] MED LIST changes: -DIGO125T80 PO; -OMEP20TA2 MT; +OMEP20TA23 MT
[2021-10-17 10:25] LABS: BASOPHILS % 1.1 % (0.0-2.0); EOSINOPHILS % 3.8 % (0.0-5.0); HEMATOCRIT. 33.1 % (36.0-48.0); HEMOGLOBIN. 10.7 g/dL (12.0-16.0); LYMPHOCYTES % 24.5 % (20.0-50.0); MEAN CORPUSCULAR HEMOGLOBIN 28.9 pg (28.0-32.0); MEAN PLATELET VOLUME 10.4 fl (7.4-10.4); MONOCYTES % 12.2 % (2.0-8.0); NEUTROPHILS % 58.4 % (40.0-76.0); PLATELET 171 x1000/uL (130-400); RED BLOOD CELL COUNT 3.72 mill/uL (4.2-5.4); RED CELL DISTRIBUTION WIDTH 12.8 % (11.6-14.6)
[2021-10-17 10:37] LABS: CHLORIDE 105 mEq/L (98-107)
[2021-10-17] MEDS ORDERED: FUROSEMIDE 40MG/4ML VIAL IV ONE (11:00)
[2021-10-17] MEDS ORDERED: ASPIRIN 81MG TABLET PO ONE (11:00)
[2021-10-17] MEDS ORDERED: MAGNESIUM/ALUMINUM HYDROXIDE/SIMETHICONE 30ML UDC PO PRN (12:30)
[2021-10-17] MEDS ORDERED: DIPHENHYDRAMINE 50MG/ML VIAL IV PRN (12:30)
[2021-10-17] MEDS ORDERED: CLONIDINE 0.1MG TABLET PO PRN (12:30)
[2021-10-17] MEDS ORDERED: MAGNESIUM HYDROXIDE 400MG/5ML 30ML UDC PO PRN (12:30)
[2021-10-17] MEDS ORDERED: ACETAMINOPHEN 325MG TABLET PO PRN ×2 (12:30)
[2021-10-17] MEDS ORDERED: IPRATROPIUM/ALBUTEROL 0.5-3(2.5)MG/3ML NEB HHN PRN (12:30)
[2021-10-17] MEDS ORDERED: GUAIFENESIN 200MG/10ML SUGAR FREE UDC PO PRN (12:30)
[2021-10-17] MEDS ORDERED: ONDANSETRON HCL 4MG/2ML INJ IV PRN (12:30)
[2021-10-17] MEDS ORDERED: HYDRALAZINE 20MG/ML VIAL IV PRN (12:30)
[2021-10-17] MEDS: SODIUM CHLORIDE 0.9% INJ 3ML FLUSH IVF SCH ×2 (14:14→21:30)
[2021-10-17 14:45] VITALS: BP 164/83
[2021-10-17] MEDS ORDERED: FUROSEMIDE 40MG/4ML VIAL IVP SCH (15:30)
[2021-10-17 16:00] VITALS: BP 164/83
[2021-10-17] MEDS: POTASSIUM CHLORIDE 20MEQ TABLET SR PO SCH (16:32)
[2021-10-17] MEDS: DOCUSATE SODIUM 100MG CAPSULE PO SCH (16:32)
[2021-10-17] MEDS: APIXABAN 2.5 MG TABLET PO SCH (16:32)
[2021-10-17 20:00] VITALS: BP 120/72
[2021-10-17] MEDS: ATORVASTATIN CALCIUM 20MG TABLET PO SCH (21:29)
[2021-10-17] MEDS: OMEPRAZOLE 20MG CAPSULE EXTENDED RELEASE PO SCH (21:29)
[2021-10-17] MEDS: CARVEDILOL 12.5MG TABLET PO SCH (21:29)
[2021-10-18] VITALS: BP 120/63
[2021-10-18] MEDS ORDERED: ZOLPIDEM TARTRATE 5MG TABLET PO PRN (00:15)
[2021-10-18] MEDS: ZOLPIDEM TARTRATE 5MG TABLET PO PRN ×2 (00:44→22:42)
[2021-10-18] MEDS: FUROSEMIDE 20MG/2ML VIAL IVP SCH ×3 (00:46→16:41)
[2021-10-18 04:00] VITALS: BP 142/68
[2021-10-18] MEDS: OMEPRAZOLE 20MG CAPSULE EXTENDED RELEASE PO SCH ×2 (06:26→22:42)
[2021-10-18] MEDS: SODIUM CHLORIDE 0.9% INJ 3ML FLUSH IVF SCH ×3 (06:26→22:42)
[2021-10-18 07:48] LABS: BASOPHILS % 0.6 % (0.0-2.0); EOSINOPHILS % 3.9 % (0.0-5.0); HEMATOCRIT. 33.3 % (36.0-48.0); HEMOGLOBIN. 10.8 g/dL (12.0-16.0); LYMPHOCYTES % 37.1 % (20.0-50.0); MEAN CORPUSCULAR HEMOGLOBIN 28.9 pg (28.0-32.0); MEAN PLATELET VOLUME 10.4 fl (7.4-10.4); MONOCYTES % 11.8 % (2.0-8.0); NEUTROPHILS % 46.6 % (40.0-76.0); PLATELET 161 x1000/uL (130-400); RED BLOOD CELL COUNT 3.74 mill/uL (4.2-5.4); RED CELL DISTRIBUTION WIDTH 12.5 % (11.6-14.6)
[2021-10-18 08:00] VITALS: BP 130/72
[2021-10-18 08:17] LABS: PHOSPHORUS 4.1 mg/dL (2.5-4.9)
[2021-10-18] MEDS: DOCUSATE SODIUM 100MG CAPSULE PO SCH ×2 (08:31→16:40)
[2021-10-18] MEDS: POTASSIUM CHLORIDE 20MEQ TABLET SR PO SCH (08:31)
[2021-10-18] MEDS: CARVEDILOL 12.5MG TABLET PO SCH ×2 (08:31→21:00)
[2021-10-18] MEDS: SPIRONOLACTONE 25MG TABLET PO SCH (08:32)
[2021-10-18] MEDS: APIXABAN 2.5 MG TABLET PO SCH ×2 (08:32→16:41)
[2021-10-18] MEDS: LISINOPRIL 10MG TABLET PO SCH (08:33)
[2021-10-18] MEDS: ASPIRIN 81MG EC TABLET PO SCH (08:34)
[2021-10-18] MEDS ORDERED: FUROSEMIDE 40MG/4ML VIAL IVP SCH (09:00)
[2021-10-18 12:00] VITALS: BP 112/62
[2021-10-18 16:00] VITALS: BP 110/66
[2021-10-18 20:00] VITALS: BP 157/82
[2021-10-18] MEDS: ATORVASTATIN CALCIUM 20MG TABLET PO SCH (22:42)
[2021-10-19] VITALS: BP 113/69
[2021-10-19 04:00] VITALS: BP 116/72
[2021-10-19] MEDS: SODIUM CHLORIDE 0.9% INJ 3ML FLUSH IVF SCH ×4 (06:10→21:27)
[2021-10-19] MEDS: OMEPRAZOLE 20MG CAPSULE EXTENDED RELEASE PO SCH ×2 (06:11→21:24)
[2021-10-19 08:00] VITALS: BP 100/57
[2021-10-19] MEDS: ASPIRIN 81MG EC TABLET PO SCH (09:00)
[2021-10-19] MEDS: LISINOPRIL 10MG TABLET PO SCH (09:00)
[2021-10-19] MEDS: SPIRONOLACTONE 25MG TABLET PO SCH (09:00)
[2021-10-19] MEDS: FUROSEMIDE 20MG/2ML VIAL IVP SCH ×2 (09:00→16:48)
[2021-10-19] MEDS: CARVEDILOL 12.5MG TABLET PO SCH ×2 (09:00→21:20)
[2021-10-19] MEDS: APIXABAN 2.5 MG TABLET PO SCH ×2 (09:06→16:48)
[2021-10-19] MEDS: POTASSIUM CHLORIDE 20MEQ TABLET SR PO SCH (09:06)
[2021-10-19] MEDS: DOCUSATE SODIUM 100MG CAPSULE PO SCH ×2 (09:06→16:48)
[2021-10-19 12:00] VITALS: BP 127/75
[2021-10-19 16:00] VITALS: BP 135/80
[2021-10-19] MEDS ORDERED: LOSARTAN POTASSIUM 25 MG TABLET PO SCH (17:00)
[2021-10-19 20:00] VITALS: BP 119/59
[2021-10-19] MEDS ORDERED: APIX2.5T MT (20:25)
[2021-10-19] MEDS: ATORVASTATIN CALCIUM 20MG TABLET PO SCH (21:20)
[2021-10-19] MEDS: LOSARTAN POTASSIUM 25 MG TABLET PO SCH (21:20)
[2021-10-20] VITALS: BP 128/83
[2021-10-20] MEDS: ZOLPIDEM TARTRATE 5MG TABLET PO PRN (00:03)
[2021-10-20 04:00] VITALS: BP 131/76
[2021-10-20] MEDS: SODIUM CHLORIDE 0.9% INJ 3ML FLUSH IVF SCH ×2 (05:24→14:00)
[2021-10-20 06:14] LABS: BASOPHILS % 1.1 % (0.0-2.0); EOSINOPHILS % 4.2 % (0.0-5.0); HEMATOCRIT. 31.3 % (36.0-48.0); HEMOGLOBIN. 10.5 g/dL (12.0-16.0); LYMPHOCYTES % 46.2 % (20.0-50.0); MEAN CORPUSCULAR HEMOGLOBIN 29.6 pg (28.0-32.0); MEAN CORPUSCULAR VOLUME 88.4 fL (81.0-99.0); MONOCYTES % 14.1 % (2.0-8.0); NEUTROPHILS % 34.4 % (40.0-76.0); PLATELET 156 x1000/uL (130-400); RED BLOOD CELL COUNT 3.54 mill/uL (4.2-5.4); RED CELL DISTRIBUTION WIDTH 12.5 % (11.6-14.6)
[2021-10-20 06:23] LABS: CHLORIDE 101 mEq/L (98-107)
[2021-10-20 08:00] VITALS: BP 133/79
[2021-10-20] MEDS ORDERED: FAMOTIDINE 20MG TABLET PO SCH (09:00)
[2021-10-20] MEDS: ASPIRIN 81MG EC TABLET PO SCH (09:00)
[2021-10-20] MEDS: DOCUSATE SODIUM 100MG CAPSULE PO SCH ×2 (10:14→16:39)
[2021-10-20] MEDS: LOSARTAN POTASSIUM 25 MG TABLET PO SCH ×2 (10:15→16:39)
[2021-10-20] MEDS: POTASSIUM CHLORIDE 20MEQ TABLET SR PO SCH (10:16)
[2021-10-20] MEDS: SPIRONOLACTONE 25MG TABLET PO SCH (10:16)
[2021-10-20] MEDS: APIXABAN 2.5 MG TABLET PO SCH ×2 (10:16→16:39)
[2021-10-20] MEDS: CARVEDILOL 12.5MG TABLET PO SCH (10:17)
[2021-10-20] MEDS: FUROSEMIDE 20MG/2ML VIAL IVP SCH ×3 (10:19→17:00)
[2021-10-20 12:00] VITALS: BP 120/71
[2021-10-20 16:00] VITALS: BP 115/71
[2021-10-20 16:27] VITALS: BP 115/71
== END 2021-10-20 18:19 | disposition home health service (06) | DRG 291 ==
LOC: ER 09:53 → ENRESERV 13:14 → 8WST 13:43
PROVIDERS: ADMIT Internal Medicine; ATTEND Internal Medicine
DX: I13.0 Hypertensive heart and chronic kidney disease with heart failure and stage 1 through stage 4 chronic kidney disease, or unspecified chronic kidney disease (principal); I50.23 Acute on chronic systolic (congestive) heart failure; I48.20 Chronic atrial fibrillation, unspecified; N17.9 Acute kidney failure, unspecified; E87.1 Hypo-osmolality and hyponatremia; E78.00 Pure hypercholesterolemia, unspecified; I25.10 Atherosclerotic heart disease of native coronary artery without angina pectoris; E66.9 Obesity, unspecified; N18.30 Chronic kidney disease, stage 3 unspecified; E78.5 Hyperlipidemia, unspecified; I27.20 Pulmonary hypertension, unspecified; I48.0 Paroxysmal atrial fibrillation; E05.90 Thyrotoxicosis, unspecified without thyrotoxic crisis or storm; Z20.822 Contact with and (suspected) exposure to COVID-19; K21.9 Gastro-esophageal reflux disease without esophagitis; D63.8 Anemia in other chronic diseases classified elsewhere; I25.5 Ischemic cardiomyopathy; Z95.810 Presence of automatic (implantable) cardiac defibrillator; Z95.5 Presence of coronary angioplasty implant and graft; I25.2 Old myocardial infarction; Z82.49 Family history of ischemic heart disease and other diseases of the circulatory system; Z83.3 Family history of diabetes mellitus; Z87.891 Personal history of nicotine dependence; Z88.6 Allergy status to analgesic agent; Z79.01 Long term (current) use of anticoagulants; Z79.899 Other long term (current) drug therapy; Z98.891 History of uterine scar from previous surgery; Z68.29 Body mass index [BMI] 29.0-29.9, adult
CPT/HCPCS: 36415; 71045; 76700; 78582; 80048; 80053; 83735; 83880; 84100; 84484; 85025; 85379; 87426; 93005; 93970; 99285; A9558; C9803; J1940

== ENCOUNTER 2022-01-18 19:48 | Inpatient (IN) | payer MEDICARE, MEDICAID ==
[~2022-01-18] VITALS: Ht 160 cm; Wt 71.3 kg
[~2022-01-18 19:48] MED LIST changes: +APIX2.5T MT; -APIX5TAB PO
[2022-01-18 21:52] LABS: BASOPHILS % 1.2 % (0.0-2.0); EOSINOPHILS % 2.1 % (0.0-5.0); HEMATOCRIT. 30.9 % (36.0-48.0); HEMOGLOBIN. 10.2 g/dL (12.0-16.0); LYMPHOCYTES % 27.3 % (20.0-50.0); MEAN CORPUSCULAR HEMOGLOBIN 28.8 pg (28.0-32.0); MEAN CORPUSCULAR VOLUME 87.3 fL (81.0-99.0); MEAN PLATELET VOLUME 10.3 fl (7.4-10.4); NEUTROPHILS % 57.4 % (40.0-76.0); PLATELET 149 x1000/uL (130-400); RED BLOOD CELL COUNT 3.54 mill/uL (4.2-5.4); RED CELL DISTRIBUTION WIDTH 13.3 % (11.6-14.6)
[2022-01-18 21:55] LABS: CHLORIDE 103 mEq/L (98-107)
[2022-01-18 21:59] LABS: INR 1.3; PROTHROMBIN TIME 14.1 sec (9.6-11.0)
[2022-01-18] MEDS ORDERED: FUROSEMIDE 40MG/4ML VIAL IVP ONE (22:45)
[2022-01-19 01:20] VITALS: BP 141/99
[2022-01-19 04:00] VITALS: BP 131/81
[2022-01-19 08:00] VITALS: BP 134/80
[2022-01-19] MEDS: FUROSEMIDE 40MG/4ML VIAL IVP SCH ×2 (08:46→21:36)
[2022-01-19] MEDS: ASPIRIN 81MG TABLET PO SCH (08:46)
[2022-01-19] MEDS: HYDRALAZINE HCL 50MG TABLET PO SCH ×3 (08:46→17:00)
[2022-01-19] MEDS ORDERED: LISINOPRIL 20MG TABLET PO SCH (09:00)
[2022-01-19] MEDS ORDERED: CARVEDILOL 3.125 MG TABLET PO SCH (09:00)
[2022-01-19] MEDS ORDERED: ENOXAPARIN 30MG/0.3ML SYR SUBCUT SCH (09:00)
[2022-01-19] MEDS: APIXABAN 5 MG TABLET PO SCH ×2 (09:59→17:00)
[2022-01-19 10:33] LABS: HEMATOCRIT. 30.3 % (36.0-48.0); HEMOGLOBIN. 10.1 g/dL (12.0-16.0); LYMPHOCYTES % 30.1 % (20.0-50.0); MEAN CORPUSCULAR HEMOGLOBIN 29.1 pg (28.0-32.0); MEAN CORPUSCULAR VOLUME 87.6 fL (81.0-99.0); MEAN PLATELET VOLUME 10.5 fl (7.4-10.4); MONOCYTES % 10.2 % (2.0-8.0); NEUTROPHILS % 56.7 % (40.0-76.0); PLATELET 146 x1000/uL (130-400); RED BLOOD CELL COUNT 3.46 mill/uL (4.2-5.4); RED CELL DISTRIBUTION WIDTH 13.1 % (11.6-14.6)
[2022-01-19 10:47] LABS: CHLORIDE 106 mEq/L (98-107)
[2022-01-19 12:00] VITALS: BP 136/76
[2022-01-19] MEDS: SPIRONOLACTONE 25MG TABLET PO SCH (13:49)
[2022-01-19 16:00] VITALS: BP 126/76
[2022-01-19] MEDS ORDERED: DOCU-138 PO (16:08)
[2022-01-19] MEDS ORDERED: FURO40TA5 MT (16:08)
[2022-01-19] MEDS: POTASSIUM CHLORIDE 10MEQ TABLET SR PO SCH (18:46)
[2022-01-19 20:00] VITALS: BP 118/70
[2022-01-19] MEDS: CARVEDILOL 6.25 MG TABLET PO SCH (20:16)
[2022-01-19] MEDS: ZOLPIDEM TARTRATE 5MG TABLET PO PRN (23:41)
[2022-01-20] VITALS (7 sets, daily range): BP systolic 115–138; BP diastolic 67–83
[2022-01-20] MEDS: ASPIRIN 81MG TABLET PO SCH (10:09)
[2022-01-20] MEDS: FUROSEMIDE 40MG/4ML VIAL IVP SCH ×2 (10:09→21:03)
[2022-01-20] MEDS: CARVEDILOL 6.25 MG TABLET PO SCH ×2 (10:10→20:24)
[2022-01-20] MEDS: APIXABAN 5 MG TABLET PO SCH ×2 (10:10→18:36)
[2022-01-20] MEDS: HYDRALAZINE HCL 50MG TABLET PO SCH ×3 (10:10→18:38)
[2022-01-20] MEDS: SPIRONOLACTONE 25MG TABLET PO SCH (10:12)
[2022-01-20] MEDS: POTASSIUM CHLORIDE 10MEQ TABLET SR PO SCH (10:12)
[2022-01-20] MEDS: ACETAMINOPHEN 325MG TABLET PO PRN ×2 (14:50→20:23)
[2022-01-20 16:20] LABS: BASOPHILS % 1.1 % (0.0-2.0); EOSINOPHILS % 3.4 % (0.0-5.0); HEMATOCRIT. 31.1 % (36.0-48.0); HEMOGLOBIN. 10.3 g/dL (12.0-16.0); MEAN PLATELET VOLUME 10.6 fl (7.4-10.4); NEUTROPHILS % 64.5 % (40.0-76.0); PLATELET 163 x1000/uL (130-400); RED BLOOD CELL COUNT 3.54 mill/uL (4.2-5.4); RED CELL DISTRIBUTION WIDTH 13.2 % (11.6-14.6)
[2022-01-20] MEDS ORDERED: IPRATROPIUM/ALBUTEROL 0.5-3(2.5)MG/3ML NEB HHN PRN (19:15)
[2022-01-20] MEDS: SACUBITRIL/VALSARTAN 24MG/26MG TABLET PO SCH (20:23)
[2022-01-20] MEDS: ZOLPIDEM TARTRATE 5MG TABLET PO PRN (23:24)
[2022-01-21 04:00] VITALS: BP 123/88
[2022-01-21 07:41] LABS: EOSINOPHILS % 4.9 % (0.0-5.0); HEMOGLOBIN. 10.4 g/dL (12.0-16.0); LYMPHOCYTES % 27.2 % (20.0-50.0); MEAN CORPUSCULAR HEMOGLOBIN 29.1 pg (28.0-32.0); MEAN CORPUSCULAR VOLUME 86.9 fL (81.0-99.0); MEAN PLATELET VOLUME 10.1 fl (7.4-10.4); MONOCYTES % 11.7 % (2.0-8.0); NEUTROPHILS % 55.2 % (40.0-76.0); PLATELET 170 x1000/uL (130-400); RED BLOOD CELL COUNT 3.57 mill/uL (4.2-5.4); RED CELL DISTRIBUTION WIDTH 13.6 % (11.6-14.6)
[2022-01-21 08:00] VITALS: BP 125/79
[2022-01-21] MEDS ORDERED: FUROSEMIDE 40MG/4ML VIAL IVP SCH (09:00)
[2022-01-21] MEDS: POTASSIUM CHLORIDE 10MEQ TABLET SR PO SCH (09:49)
[2022-01-21] MEDS: ASPIRIN 81MG TABLET PO SCH (09:49)
[2022-01-21] MEDS: HYDRALAZINE HCL 50MG TABLET PO SCH ×3 (09:50→17:58)
[2022-01-21] MEDS: CARVEDILOL 6.25 MG TABLET PO SCH (09:50)
[2022-01-21] MEDS: APIXABAN 5 MG TABLET PO SCH ×2 (09:50→17:58)
[2022-01-21] MEDS: SPIRONOLACTONE 25MG TABLET PO SCH (09:50)
[2022-01-21] MEDS: SACUBITRIL/VALSARTAN 24MG/26MG TABLET PO SCH (09:50)
[2022-01-21 12:00] VITALS: BP 116/69
[2022-01-21 17:24] VITALS: BP 115/61
== END 2022-01-21 17:30 | disposition home health service (06) | DRG 291 ==
LOC: ER 19:48 → EDBEDREQ 22:37 → EDBEDREQTM 22:37 → MICUSO 23:37 → 8WST 01-19 01:18
PROVIDERS: ADMIT Internal Medicine; ATTEND Internal Medicine
DX: I13.0 Hypertensive heart and chronic kidney disease with heart failure and stage 1 through stage 4 chronic kidney disease, or unspecified chronic kidney disease (principal); I50.43 Acute on chronic combined systolic (congestive) and diastolic (congestive) heart failure; J96.01 Acute respiratory failure with hypoxia; N18.4 Chronic kidney disease, stage 4 (severe); N17.9 Acute kidney failure, unspecified; I27.20 Pulmonary hypertension, unspecified; I48.91 Unspecified atrial fibrillation; D72.819 Decreased white blood cell count, unspecified; I25.10 Atherosclerotic heart disease of native coronary artery without angina pectoris; K21.9 Gastro-esophageal reflux disease without esophagitis; E78.00 Pure hypercholesterolemia, unspecified; T50.2X5A Adverse effect of carbonic-anhydrase inhibitors, benzothiadiazides and other diuretics, initial encounter; E03.9 Hypothyroidism, unspecified; D63.1 Anemia in chronic kidney disease; I42.9 Cardiomyopathy, unspecified; E78.5 Hyperlipidemia, unspecified; E21.3 Hyperparathyroidism, unspecified; E87.6 Hypokalemia; I08.1 Rheumatic disorders of both mitral and tricuspid valves; Z79.01 Long term (current) use of anticoagulants; Z95.810 Presence of automatic (implantable) cardiac defibrillator; Z88.8 Allergy status to other drugs, medicaments and biological substances; Z95.5 Presence of coronary angioplasty implant and graft; Z79.899 Other long term (current) drug therapy; Z87.891 Personal history of nicotine dependence; Z91.11 Patient's noncompliance with dietary regimen; Y92.89 Other specified places as the place of occurrence of the external cause
CPT/HCPCS: 36415; 71045; 80048; 80053; 83880; 84484; 85025; 93005; 93306; 99285; C1893; J1650; J1940

== ENCOUNTER 2022-03-27 13:12 | Inpatient (IN) | payer MEDICARE, MEDICAID ==
[~2022-03-27] VITALS: Ht 160 cm; Wt 70.3 kg
[~2022-03-27 13:12] MED LIST changes: +DOCU-138 PO; +FURO40TA5 MT
[2022-03-27 16:51] LABS: BASOPHILS % 2.7 % (0.0-2.0); EOSINOPHILS % 1.3 % (0.0-5.0); HEMATOCRIT. 35.1 % (36.0-48.0); HEMOGLOBIN. 11.4 g/dL (12.0-16.0); LYMPHOCYTES % 26.5 % (20.0-50.0); MEAN CORPUSCULAR HEMOGLOBIN 29.5 pg (28.0-32.0); MEAN CORPUSCULAR VOLUME 90.5 fL (81.0-99.0); MEAN PLATELET VOLUME 10.7 fl (7.4-10.4); NEUTROPHILS % 58.5 % (40.0-76.0); PLATELET 153 x1000/uL (130-400); RED BLOOD CELL COUNT 3.88 mill/uL (4.2-5.4); RED CELL DISTRIBUTION WIDTH 15.1 % (11.6-14.6)
[2022-03-27 16:58] LABS: CHLORIDE 105 mEq/L (98-107)
[2022-03-27 17:29] LABS: CLARITY URINE CLEAR (CLEAR); COLOR URINE YELLOW (YELLOW); KETONES URINE NEGATIVE (NEGATIVE); LEUKOCYTE ESTERASE URINE NEGATIVE (NEGATIVE); NITRITE URINE NEGATIVE (NEGATIVE); OCCULT BLOOD URINE NEGATIVE (NEGATIVE); PH URINE 5.5 (4.5-8.0); PROTEIN URINE 1+ (NEGATIVE); SPECIFIC GRAVITY URINE 1.011 (1.005-1.030); UROBILINOGEN URINE 0.2 E.U./dL (0.2-1.0)
[2022-03-27] MEDS ORDERED: FUROSEMIDE 40MG/4ML VIAL IV ONE (18:15)
[2022-03-27] MEDS ORDERED: NITROGLYCERIN 0.4MG TABLET SL SL PRN (18:15)
[2022-03-27] MEDS ORDERED: ONDANSETRON HCL 4MG/2ML INJ IV ONE (18:15)
[2022-03-27] MEDS ORDERED: ZOLPIDEM TARTRATE 5MG TABLET PO PRN (19:30)
[2022-03-27] MEDS ORDERED: HYDRALAZINE 20MG/ML VIAL IV PRN (19:30)
[2022-03-27] MEDS ORDERED: CLONIDINE 0.1MG TABLET PO PRN (19:30)
[2022-03-27] MEDS ORDERED: DIPHENHYDRAMINE 50MG/ML VIAL IV PRN (19:30)
[2022-03-27] MEDS ORDERED: ACETAMINOPHEN 325MG TABLET PO PRN (19:30)
[2022-03-27] MEDS ORDERED: MAGNESIUM/ALUMINUM HYDROXIDE/SIMETHICONE 30ML UDC PO PRN (19:30)
[2022-03-27] MEDS ORDERED: ONDANSETRON HCL 4MG/2ML INJ IV PRN (19:30)
[2022-03-27 20:00] VITALS: BP 146/84
[2022-03-27] MEDS: CARVEDILOL 12.5MG TABLET PO SCH (22:14)
[2022-03-27] MEDS: ATORVASTATIN CALCIUM 20MG TABLET PO SCH (22:14)
[2022-03-27] MEDS: FAMOTIDINE 20MG TABLET PO SCH (22:14)
[2022-03-27] MEDS: SODIUM CHLORIDE 0.9% INJ 3ML FLUSH IVF SCH (22:18)
[2022-03-27 22:31] VITALS: BP 146/84
[2022-03-28] VITALS: BP 132/75
[2022-03-28 04:00] VITALS: BP 130/81
[2022-03-28] MEDS: SODIUM CHLORIDE 0.9% INJ 3ML FLUSH IVF SCH ×3 (06:00→22:07)
[2022-03-28 08:00] VITALS: BP 126/78
[2022-03-28] MEDS: APIXABAN 2.5 MG TABLET PO SCH ×2 (08:33→16:40)
[2022-03-28] MEDS: ASPIRIN 81MG EC TABLET PO SCH (08:33)
[2022-03-28] MEDS: POTASSIUM CHLORIDE 20MEQ TABLET SR PO SCH (08:33)
[2022-03-28] MEDS: SPIRONOLACTONE 25MG TABLET PO SCH (08:33)
[2022-03-28] MEDS: CARVEDILOL 12.5MG TABLET PO SCH ×2 (08:33→22:08)
[2022-03-28] MEDS: DOCUSATE SODIUM 100MG CAPSULE PO SCH ×2 (08:33→16:40)
[2022-03-28] MEDS: ACETAMINOPHEN 325MG TABLET PO PRN ×2 (08:34→15:17)
[2022-03-28] MEDS ORDERED: FUROSEMIDE 20MG/2ML VIAL IVP SCH (09:00)
[2022-03-28 12:00] VITALS: BP 111/76
[2022-03-28 16:00] VITALS: BP 125/76
[2022-03-28] MEDS: FUROSEMIDE 20MG/2ML VIAL IVP SCH (16:39)
[2022-03-28] MEDS: MEGESTROL ACETATE 400 MG/10 ML UDC PO SCH (16:41)
[2022-03-28 20:00] VITALS: BP 113/74
[2022-03-28] MEDS: ATORVASTATIN CALCIUM 20MG TABLET PO SCH (22:07)
[2022-03-28] MEDS: FAMOTIDINE 20MG TABLET PO SCH (22:07)
[2022-03-29] VITALS: BP 133/86
[2022-03-29 04:00] VITALS: BP 125/81
[2022-03-29] MEDS: SODIUM CHLORIDE 0.9% INJ 3ML FLUSH IVF SCH ×3 (05:05→21:59)
[2022-03-29 06:07] LABS: BASOPHILS % 1.2 % (0.0-2.0); EOSINOPHILS % 3.4 % (0.0-5.0); HEMATOCRIT. 31.9 % (36.0-48.0); HEMOGLOBIN. 10.5 g/dL (12.0-16.0); LYMPHOCYTES % 32.4 % (20.0-50.0); MEAN CORPUSCULAR HEMOGLOBIN 29.4 pg (28.0-32.0); MEAN CORPUSCULAR VOLUME 89.6 fL (81.0-99.0); MEAN PLATELET VOLUME 10.9 fl (7.4-10.4); MONOCYTES % 9.2 % (2.0-8.0); NEUTROPHILS % 53.8 % (40.0-76.0); PLATELET 130 x1000/uL (130-400); RED BLOOD CELL COUNT 3.56 mill/uL (4.2-5.4); RED CELL DISTRIBUTION WIDTH 15.1 % (11.6-14.6)
[2022-03-29 08:00] VITALS: BP 116/73
[2022-03-29] MEDS: POTASSIUM CHLORIDE 20MEQ TABLET SR PO SCH (08:51)
[2022-03-29] MEDS: SPIRONOLACTONE 25MG TABLET PO SCH (08:51)
[2022-03-29] MEDS: DOCUSATE SODIUM 100MG CAPSULE PO SCH ×2 (08:51→17:35)
[2022-03-29] MEDS: MEGESTROL ACETATE 400 MG/10 ML UDC PO SCH ×2 (08:51→17:37)
[2022-03-29] MEDS: APIXABAN 2.5 MG TABLET PO SCH ×2 (08:51→17:35)
[2022-03-29] MEDS: CARVEDILOL 12.5MG TABLET PO SCH ×2 (08:51→21:58)
[2022-03-29] MEDS: ASPIRIN 81MG EC TABLET PO SCH (09:13)
[2022-03-29] MEDS: FUROSEMIDE 20MG/2ML VIAL IVP SCH ×2 (09:33→17:33)
[2022-03-29 12:00] VITALS: BP 117/86
[2022-03-29] MEDS ORDERED: CINA30TA5 PO (15:52)
[2022-03-29 16:00] VITALS: BP 111/72
[2022-03-29 20:55] VITALS: BP 116/83
[2022-03-29] MEDS: ATORVASTATIN CALCIUM 20MG TABLET PO SCH (21:58)
[2022-03-29] MEDS: FAMOTIDINE 20MG TABLET PO SCH (21:58)
[2022-03-30] VITALS: BP 112/74
[2022-03-30] MEDS ORDERED: ZOLPIDEM TARTRATE 5MG TABLET PO PRN (00:15)
[2022-03-30 04:00] VITALS: BP 134/54
[2022-03-30] MEDS: SODIUM CHLORIDE 0.9% INJ 3ML FLUSH IVF SCH ×2 (05:44→13:05)
[2022-03-30 08:00] VITALS: BP 134/85
[2022-03-30] MEDS: POTASSIUM CHLORIDE 20MEQ TABLET SR PO SCH (08:22)
[2022-03-30] MEDS: DOCUSATE SODIUM 100MG CAPSULE PO SCH ×2 (08:22→16:37)
[2022-03-30] MEDS: ASPIRIN 81MG EC TABLET PO SCH (08:22)
[2022-03-30] MEDS: CARVEDILOL 12.5MG TABLET PO SCH (08:23)
[2022-03-30] MEDS: SPIRONOLACTONE 25MG TABLET PO SCH (08:23)
[2022-03-30] MEDS: APIXABAN 2.5 MG TABLET PO SCH ×2 (08:23→16:37)
[2022-03-30] MEDS: FUROSEMIDE 20MG/2ML VIAL IVP SCH ×2 (08:24→16:37)
[2022-03-30] MEDS: MEGESTROL ACETATE 400 MG/10 ML UDC PO SCH ×2 (08:26→16:37)
[2022-03-30 12:00] VITALS: BP 130/91
[2022-03-30 14:18] VITALS: BP 128/90
[2022-03-30 16:00] VITALS: BP 128/90
[2022-03-30] MEDS ORDERED: FERROUS SULFATE 325MG TABLET PO SCH (17:00)
== END 2022-03-30 19:40 | disposition home or self-care (01) | DRG 291 ==
LOC: ER 13:12 → 7WST 18:55 → EDBEDREQ 19:03
PROVIDERS: ADMIT Internal Medicine; ATTEND Internal Medicine
DX: I13.0 Hypertensive heart and chronic kidney disease with heart failure and stage 1 through stage 4 chronic kidney disease, or unspecified chronic kidney disease (principal); I50.23 Acute on chronic systolic (congestive) heart failure; N17.9 Acute kidney failure, unspecified; N18.4 Chronic kidney disease, stage 4 (severe); I37.1 Nonrheumatic pulmonary valve insufficiency; I25.5 Ischemic cardiomyopathy; I48.0 Paroxysmal atrial fibrillation; I27.20 Pulmonary hypertension, unspecified; E78.00 Pure hypercholesterolemia, unspecified; I25.10 Atherosclerotic heart disease of native coronary artery without angina pectoris; E03.9 Hypothyroidism, unspecified; K21.9 Gastro-esophageal reflux disease without esophagitis; E78.5 Hyperlipidemia, unspecified; R06.01 Orthopnea; Z88.8 Allergy status to other drugs, medicaments and biological substances; Z87.891 Personal history of nicotine dependence; Z79.01 Long term (current) use of anticoagulants; Z79.899 Other long term (current) drug therapy; Z95.5 Presence of coronary angioplasty implant and graft; Z95.810 Presence of automatic (implantable) cardiac defibrillator; Z83.3 Family history of diabetes mellitus; Z82.49 Family history of ischemic heart disease and other diseases of the circulatory system
CPT/HCPCS: 36415; 71045; 80048; 80053; 81003; 83605; 83880; 84443; 84484; 85025; 93005; 93306; 94618; 99285; C1893; J1940; J2405

== ENCOUNTER 2022-05-03 06:43 | Inpatient (IN) | payer MEDICARE, MEDICAID ==
[~2022-05-03] VITALS: Ht 160 cm; Wt 75.3 kg
[~2022-05-03 06:43] MED LIST changes: -CINA30 MT; +CINA30TA5 PO
[2022-05-03 08:28] LABS: BASOPHILS % 0.8 % (0.0-2.0); EOSINOPHILS % 0.6 % (0.0-5.0); HEMATOCRIT. 36.5 % (36.0-48.0); HEMOGLOBIN. 11.9 g/dL (12.0-16.0); LYMPHOCYTES % 16.3 % (20.0-50.0); MEAN CORPUSCULAR HEMOGLOBIN 29.8 pg (28.0-32.0); MEAN CORPUSCULAR VOLUME 91.4 fL (81.0-99.0); MEAN PLATELET VOLUME 10.6 fl (7.4-10.4); MONOCYTES % 11.9 % (2.0-8.0); NEUTROPHILS % 70.4 % (40.0-76.0); PLATELET 164 x1000/uL (130-400); RED BLOOD CELL COUNT 3.99 mill/uL (4.2-5.4); RED CELL DISTRIBUTION WIDTH 15.8 % (11.6-14.6)
[2022-05-03 08:37] LABS: CHLORIDE 109 mEq/L (98-107)
[2022-05-03] MEDS ORDERED: GUAIFENESIN 200MG/10ML SUGAR FREE UDC PO PRN (09:45)
[2022-05-03] MEDS ORDERED: HYDROCODONE/ACETAMINOPHEN 5/325MG TABLET PO PRN (09:45)
[2022-05-03] MEDS ORDERED: FUROSEMIDE 40MG TABLET PO SCH (09:45)
[2022-05-03] MEDS ORDERED: ACETAMINOPHEN 325MG TABLET PO PRN ×2 (09:45)
[2022-05-03] MEDS ORDERED: MAGNESIUM/ALUMINUM HYDROXIDE/SIMETHICONE 30ML UDC PO PRN (09:45)
[2022-05-03] MEDS ORDERED: ONDANSETRON HCL 4MG/2ML INJ IV PRN (09:45)
[2022-05-03] MEDS ORDERED: CLONIDINE 0.1MG TABLET PO PRN (09:45)
[2022-05-03] MEDS ORDERED: NA PHOS,M-B/NA PHOS,DI-BA ENEMA 118ML PR PRN (09:45)
[2022-05-03] MEDS ORDERED: DOCUSATE SODIUM 100MG CAPSULE PO PRN (09:45)
[2022-05-03] MEDS ORDERED: NALOXONE HCL 0.4MG/ML VIAL IV PRN (10:00)
[2022-05-03] MEDS ORDERED: POTASSIUM CHLORIDE 20MEQ TABLET SR PO NR (10:00)
[2022-05-03] MEDS ORDERED: IPRATROPIUM/ALBUTEROL 0.5-3(2.5)MG/3ML NEB HHN PRN (10:30)
[2022-05-03] MEDS: SPIRONOLACTONE 25MG TABLET PO SCH (10:54)
[2022-05-03] MEDS: CARVEDILOL 12.5MG TABLET PO SCH ×2 (10:54→20:29)
[2022-05-03] MEDS: PANTOPRAZOLE 40MG DR TABLET PO SCH (10:55)
[2022-05-03] MEDS: LOSARTAN POTASSIUM 50 MG TABLET PO SCH (10:55)
[2022-05-03 10:59] LABS: PHOSPHORUS 4.4 mg/dL (2.5-4.9); T4 FREE 1.75 ng/dL (0.76-1.46)
[2022-05-03] MEDS: APIXABAN 2.5 MG TABLET PO SCH ×2 (11:03→20:29)
[2022-05-03 11:12] LABS: VITAMIN B12 SERUM 1726 pg/mL (211-911)
[2022-05-03 11:26] LABS: FOLIC ACID (FOLATE) SERUM > 20.00 ng/mL (>5.38)
[2022-05-03 19:30] VITALS: BP 111/79
[2022-05-03 19:45] VITALS: BP 119/79
[2022-05-03] MEDS: ATORVASTATIN CALCIUM 20MG TABLET PO SCH (20:29)
[2022-05-04] VITALS: BP 104/77
[2022-05-04] MEDS ORDERED: MELATONIN 3MG TABLET PO SCH (00:45)
[2022-05-04 04:00] VITALS: BP 124/69
[2022-05-04 06:56] LABS: HEMATOCRIT 35.5 % (36.0-48.0); HEMOGLOBIN 11.5 g/dL (12.0-16.0); MEAN CORPUSCULAR HEMOGLOBIN 29.2 pg (28.0-32.0); MEAN CORPUSCULAR VOLUME 90.2 fL (81.0-99.0); PLATELET 180 x1000/uL (130-400); RED BLOOD CELL COUNT 3.94 mill/uL (4.2-5.4); RED CELL DISTRIBUTION WIDTH 15.9 % (11.6-14.6)
[2022-05-04 08:00] VITALS: BP 126/90
[2022-05-04] MEDS ORDERED: SODIUM CHLORIDE 0.45% 1,000 ML IV ONE (08:00)
[2022-05-04] MEDS: LOSARTAN POTASSIUM 50 MG TABLET PO SCH (10:00)
[2022-05-04] MEDS: SPIRONOLACTONE 25MG TABLET PO SCH (10:00)
[2022-05-04] MEDS: CARVEDILOL 12.5MG TABLET PO SCH ×2 (10:01→21:33)
[2022-05-04] MEDS: APIXABAN 2.5 MG TABLET PO SCH ×2 (10:02→21:33)
[2022-05-04] MEDS: PANTOPRAZOLE 40MG DR TABLET PO SCH (10:03)
[2022-05-04 12:00] VITALS: BP 130/92
[2022-05-04 16:00] VITALS: BP 125/86
[2022-05-04 20:00] VITALS: BP 117/75
[2022-05-04] MEDS ORDERED: MELATONIN 3MG TABLET PO PRN (21:00)
[2022-05-04] MEDS: ATORVASTATIN CALCIUM 20MG TABLET PO SCH (21:33)
[2022-05-05] VITALS: BP 127/80
[2022-05-05 04:00] VITALS: BP 113/67
[2022-05-05 07:12] LABS: EOSINOPHILS % 4.5 % (0.0-5.0); HEMATOCRIT. 34.4 % (36.0-48.0); HEMOGLOBIN. 11.2 g/dL (12.0-16.0); MEAN CORPUSCULAR HEMOGLOBIN 29.4 pg (28.0-32.0); MEAN CORPUSCULAR VOLUME 89.9 fL (81.0-99.0); MEAN PLATELET VOLUME 11.1 fl (7.4-10.4); MONOCYTES % 11.3 % (2.0-8.0); NEUTROPHILS % 59.2 % (40.0-76.0); PLATELET 177 x1000/uL (130-400); RED BLOOD CELL COUNT 3.82 mill/uL (4.2-5.4); RED CELL DISTRIBUTION WIDTH 15.8 % (11.6-14.6)
[2022-05-05 08:00] VITALS: BP 110/72
[2022-05-05] MEDS: CARVEDILOL 12.5MG TABLET PO SCH ×2 (08:53→20:50)
[2022-05-05] MEDS: FAMOTIDINE 20MG TABLET PO SCH (08:54)
[2022-05-05] MEDS: SPIRONOLACTONE 25MG TABLET PO SCH (08:54)
[2022-05-05] MEDS: APIXABAN 2.5 MG TABLET PO SCH ×2 (08:54→20:45)
[2022-05-05] MEDS: LOSARTAN POTASSIUM 50 MG TABLET PO SCH (08:54)
[2022-05-05 12:00] VITALS: BP 115/75
[2022-05-05 16:00] VITALS: BP 111/72
[2022-05-05] MEDS ORDERED: SODIUM CHLORIDE 0.45% 1,000 ML IV ONE (16:15)
[2022-05-05 20:00] VITALS: BP 126/75
[2022-05-05] MEDS: ATORVASTATIN CALCIUM 20MG TABLET PO SCH (20:45)
[2022-05-06] VITALS: BP 125/60
[2022-05-06 04:00] VITALS: BP 130/79
[2022-05-06] MEDS: FAMOTIDINE 20MG TABLET PO SCH (06:44)
[2022-05-06 07:28] LABS: HEMATOCRIT 34.6 % (36.0-48.0); HEMOGLOBIN 11.2 g/dL (12.0-16.0); MEAN CORPUSCULAR HEMOGLOBIN 29.3 pg (28.0-32.0); MEAN CORPUSCULAR VOLUME 90.6 fL (81.0-99.0); PLATELET 183 x1000/uL (130-400); RED BLOOD CELL COUNT 3.82 mill/uL (4.2-5.4); RED CELL DISTRIBUTION WIDTH 15.6 % (11.6-14.6)
[2022-05-06 08:00] VITALS: BP 142/89
[2022-05-06] MEDS: CARVEDILOL 12.5MG TABLET PO SCH ×2 (10:31→21:27)
[2022-05-06] MEDS: APIXABAN 2.5 MG TABLET PO SCH ×2 (10:31→21:23)
[2022-05-06] MEDS: SPIRONOLACTONE 25MG TABLET PO SCH (10:32)
[2022-05-06 12:00] VITALS: BP 123/74
[2022-05-06 16:00] VITALS: BP 119/69
[2022-05-06] MEDS ORDERED: DEXT 5%/0.9% NACL 1,000 ML IV ONE (16:15)
[2022-05-06 20:00] VITALS: BP 122/76
[2022-05-06] MEDS: ATORVASTATIN CALCIUM 20MG TABLET PO SCH (21:23)
[2022-05-06 23:54] LABS: FERRITIN 150 ng/mL (10-291)
[2022-05-07] VITALS: BP 118/67
[2022-05-07 04:00] VITALS: BP 155/71
[2022-05-07 06:38] LABS: HEMATOCRIT. 34.7 % (36.0-48.0); HEMOGLOBIN. 11.3 g/dL (12.0-16.0); MEAN CORPUSCULAR HEMOGLOBIN 28.9 pg (28.0-32.0); MEAN PLATELET VOLUME 10.9 fl (7.4-10.4); PLATELET 185 x1000/uL (130-400); RED CELL DISTRIBUTION WIDTH 15.8 % (11.6-14.6)
[2022-05-07] MEDS: FAMOTIDINE 20MG TABLET PO SCH (06:43)
[2022-05-07 07:16] LABS: PHOSPHORUS 3.6 mg/dL (2.5-4.9); T4 FREE 1.62 ng/dL (0.76-1.46)
[2022-05-07 07:31] VITALS: BP 133/85
[2022-05-07] MEDS: SPIRONOLACTONE 25MG TABLET PO SCH (08:03)
[2022-05-07] MEDS: CARVEDILOL 12.5MG TABLET PO SCH ×2 (08:03→20:13)
[2022-05-07] MEDS: APIXABAN 2.5 MG TABLET PO SCH ×2 (08:03→20:14)
[2022-05-07 12:34] VITALS: BP 130/75
[2022-05-07 14:11] LABS: PLATELET ESTIMATE NORMAL
[2022-05-07] MEDS ORDERED: CINA30 PO (15:34)
[2022-05-07 16:00] VITALS: BP 127/75
[2022-05-07 20:00] VITALS: BP 122/77
[2022-05-07] MEDS: ATORVASTATIN CALCIUM 20MG TABLET PO SCH (20:14)
[2022-05-08] VITALS (13 sets, daily range): BP systolic 107–151; BP diastolic 61–102
[2022-05-08] MEDS: MILRINONE 20MG-DEXT 5% PREMIX 100 ML IV SCH ×5 (01:34→23:41)
[2022-05-08 07:41] LABS: HEMATOCRIT 32.4 % (36.0-48.0); HEMOGLOBIN 10.5 g/dL (12.0-16.0); MEAN CORPUSCULAR HEMOGLOBIN 29.7 pg (28.0-32.0); MEAN CORPUSCULAR VOLUME 91.5 fL (81.0-99.0); PLATELET 173 x1000/uL (130-400); RED BLOOD CELL COUNT 3.54 mill/uL (4.2-5.4); RED CELL DISTRIBUTION WIDTH 15.6 % (11.6-14.6)
[2022-05-08] MEDS: CARVEDILOL 12.5MG TABLET PO SCH ×2 (10:25→20:56)
[2022-05-08] MEDS: SPIRONOLACTONE 25MG TABLET PO SCH (10:26)
[2022-05-08] MEDS: FAMOTIDINE 20MG TABLET PO SCH (10:26)
[2022-05-08] MEDS: APIXABAN 2.5 MG TABLET PO SCH ×2 (10:26→20:56)
[2022-05-08] MEDS: AMIODARONE HCL 200 MG TABLET PO SCH ×2 (10:27→17:39)
[2022-05-08] MEDS ORDERED: MILRINONE 20MG-DEXT 5% PREMIX 100 ML IV SCH (12:05)
[2022-05-08] MEDS: ATORVASTATIN CALCIUM 20MG TABLET PO SCH (20:56)
[2022-05-09] VITALS (16 sets, daily range): BP systolic 101–131; BP diastolic 55–80
[2022-05-09] MEDS: MILRINONE 20MG-DEXT 5% PREMIX 100 ML IV SCH ×3 (05:34→18:00)
[2022-05-09 06:33] LABS: HEMATOCRIT 30.3 % (36.0-48.0); HEMOGLOBIN 10.1 g/dL (12.0-16.0); MEAN CORPUSCULAR HEMOGLOBIN 29.5 pg (28.0-32.0); MEAN CORPUSCULAR VOLUME 89.1 fL (81.0-99.0); PLATELET 177 x1000/uL (130-400); RED CELL DISTRIBUTION WIDTH 15.7 % (11.6-14.6)
[2022-05-09 07:44] LABS: PHOSPHORUS 2.2 mg/dL (2.5-4.9)
[2022-05-09] MEDS: APIXABAN 2.5 MG TABLET PO SCH ×2 (08:25→20:38)
[2022-05-09] MEDS: AMIODARONE HCL 200 MG TABLET PO SCH ×2 (08:26→17:05)
[2022-05-09] MEDS: SPIRONOLACTONE 25MG TABLET PO SCH (08:27)
[2022-05-09] MEDS: CARVEDILOL 12.5MG TABLET PO SCH ×2 (08:27→20:38)
[2022-05-09] MEDS: FAMOTIDINE 20MG TABLET PO SCH (08:28)
[2022-05-09] MEDS ORDERED: SODIUM PHOS,M-BASIC-D-BASIC 10 MM in DEXT 5% WATER 246.6667 ML IV NR (10:00)
[2022-05-09] MEDS ORDERED: METOLAZONE 5MG TABLET PO NR (15:00)
[2022-05-09] MEDS ORDERED: FUROSEMIDE 40MG/4ML VIAL IVP NR (15:30)
[2022-05-09] MEDS: ATORVASTATIN CALCIUM 20MG TABLET PO SCH (20:38)
[2022-05-10] VITALS (13 sets, daily range): BP systolic 101–132; BP diastolic 53–71
[2022-05-10] MEDS: MILRINONE 20MG-DEXT 5% PREMIX 100 ML IV SCH ×5 (00:56→19:39)
[2022-05-10 05:59] LABS: HEMATOCRIT 31.9 % (36.0-48.0); HEMOGLOBIN 10.6 g/dL (12.0-16.0); MEAN CORPUSCULAR HEMOGLOBIN 29.4 pg (28.0-32.0); MEAN CORPUSCULAR VOLUME 88.6 fL (81.0-99.0); PLATELET 193 x1000/uL (130-400); RED CELL DISTRIBUTION WIDTH 15.9 % (11.6-14.6)
[2022-05-10 07:04] LABS: PHOSPHORUS 2.4 mg/dL (2.5-4.9)
[2022-05-10] MEDS: FAMOTIDINE 20MG TABLET PO SCH (07:30)
[2022-05-10] MEDS: AMIODARONE HCL 200 MG TABLET PO SCH ×2 (10:29→16:54)
[2022-05-10] MEDS: APIXABAN 2.5 MG TABLET PO SCH ×2 (10:29→20:35)
[2022-05-10] MEDS: CARVEDILOL 12.5MG TABLET PO SCH ×2 (10:31→20:35)
[2022-05-10] MEDS: SPIRONOLACTONE 25MG TABLET PO SCH (10:31)
[2022-05-10] MEDS: ATORVASTATIN CALCIUM 20MG TABLET PO SCH (20:35)
[2022-05-10] MEDS ORDERED: METOLAZONE 10MG TABLET PO NR (21:15)
[2022-05-10] MEDS ORDERED: FUROSEMIDE 100MG/10ML VIAL IVP NR (21:45)
[2022-05-11] VITALS (12 sets, daily range): BP systolic 96–135; BP diastolic 35–81
[2022-05-11] MEDS: MILRINONE 20MG-DEXT 5% PREMIX 100 ML IV SCH ×4 (00:37→19:35)
[2022-05-11 05:51] LABS: HEMATOCRIT 32.5 % (36.0-48.0); HEMOGLOBIN 10.9 g/dL (12.0-16.0); MEAN CORPUSCULAR HEMOGLOBIN 29.6 pg (28.0-32.0); MEAN CORPUSCULAR VOLUME 87.9 fL (81.0-99.0); PLATELET 185 x1000/uL (130-400); RED BLOOD CELL COUNT 3.69 mill/uL (4.2-5.4); RED CELL DISTRIBUTION WIDTH 15.7 % (11.6-14.6)
[2022-05-11 07:38] LABS: PHOSPHORUS 2.5 mg/dL (2.5-4.9); T4 FREE 1.48 ng/dL (0.76-1.46)
[2022-05-11] MEDS: APIXABAN 2.5 MG TABLET PO SCH ×2 (08:49→20:19)
[2022-05-11] MEDS: AMIODARONE HCL 200 MG TABLET PO SCH ×2 (08:49→17:17)
[2022-05-11] MEDS: FAMOTIDINE 20MG TABLET PO SCH (08:49)
[2022-05-11] MEDS: SPIRONOLACTONE 25MG TABLET PO SCH (08:50)
[2022-05-11] MEDS: CARVEDILOL 12.5MG TABLET PO SCH ×2 (08:50→20:19)
[2022-05-11] MEDS ORDERED: FUROSEMIDE 100MG/10ML VIAL IVP NR (17:00)
[2022-05-11] MEDS ORDERED: METOLAZONE 10MG TABLET PO NR (17:00)
[2022-05-11] MEDS: ATORVASTATIN CALCIUM 20MG TABLET PO SCH (20:19)
[2022-05-12] VITALS (12 sets, daily range): BP systolic 106–157; BP diastolic 39–79
[2022-05-12] MEDS: MILRINONE 20MG-DEXT 5% PREMIX 100 ML IV SCH ×3 (01:17→13:36)
[2022-05-12 07:06] LABS: HEMATOCRIT 33.1 % (36.0-48.0); HEMOGLOBIN 11.1 g/dL (12.0-16.0); MEAN CORPUSCULAR HEMOGLOBIN 29.3 pg (28.0-32.0); MEAN CORPUSCULAR VOLUME 87.9 fL (81.0-99.0); PLATELET 180 x1000/uL (130-400); RED BLOOD CELL COUNT 3.77 mill/uL (4.2-5.4); RED CELL DISTRIBUTION WIDTH 15.7 % (11.6-14.6)
[2022-05-12] MEDS: APIXABAN 2.5 MG TABLET PO SCH ×2 (09:33→20:37)
[2022-05-12] MEDS: FAMOTIDINE 20MG TABLET PO SCH (09:33)
[2022-05-12] MEDS: CARVEDILOL 12.5MG TABLET PO SCH ×2 (09:34→20:37)
[2022-05-12] MEDS: SPIRONOLACTONE 25MG TABLET PO SCH (09:34)
[2022-05-12] MEDS: AMIODARONE HCL 200 MG TABLET PO SCH ×2 (09:34→17:56)
[2022-05-12] MEDS ORDERED: SODIUM CHLORIDE 0.9% 1,000 ML IV ONE (10:30)
[2022-05-12] MEDS ORDERED: ALBUTEROL (0.083%) 2.5MG/3ML NEB HHN PRN (19:45)
[2022-05-12] MEDS ORDERED: IPRATROPIUM BROMIDE (0.02%) 0.5MG/2.5ML NEB HHN PRN (19:45)
[2022-05-12] MEDS: ATORVASTATIN CALCIUM 20MG TABLET PO SCH (20:37)
[2022-05-13] VITALS (12 sets, daily range): BP systolic 136–161; BP diastolic 39–83
[2022-05-13 06:34] LABS: PHOSPHORUS 3.4 mg/dL (2.5-4.9)
[2022-05-13] MEDS: AMIODARONE HCL 200 MG TABLET PO SCH ×2 (08:55→16:41)
[2022-05-13] MEDS: SPIRONOLACTONE 25MG TABLET PO SCH (08:55)
[2022-05-13] MEDS: APIXABAN 2.5 MG TABLET PO SCH ×2 (08:55→20:32)
[2022-05-13] MEDS: FAMOTIDINE 20MG TABLET PO SCH (08:56)
[2022-05-13] MEDS: CARVEDILOL 12.5MG TABLET PO SCH ×2 (08:56→20:33)
[2022-05-13] MEDS ORDERED: SODIUM CHLORIDE 0.45% 1,000 ML IV ONE (10:30)
[2022-05-13] MEDS ORDERED: SODIUM CHLORIDE 0.9% 1,000 ML IV ONE (10:30)
[2022-05-13] MEDS: ATORVASTATIN CALCIUM 20MG TABLET PO SCH (20:32)
[2022-05-14] VITALS (7 sets, daily range): BP systolic 130–152; BP diastolic 69–88
[2022-05-14] MEDS: SPIRONOLACTONE 25MG TABLET PO SCH (08:21)
[2022-05-14] MEDS: FAMOTIDINE 20MG TABLET PO SCH (08:21)
[2022-05-14] MEDS: APIXABAN 2.5 MG TABLET PO SCH (08:22)
[2022-05-14] MEDS: AMIODARONE HCL 200 MG TABLET PO SCH (08:22)
[2022-05-14] MEDS: CARVEDILOL 12.5MG TABLET PO SCH (08:22)
== END 2022-05-14 15:00 | disposition home or self-care (01) | DRG 308 ==
LOC: ER 06:50 → 8WST 08:51 → EDBEDREQTM 08:54 → EDBEDREQ 08:54 → ENRESERV 17:53 → 8WST 19:11 → 5EST 05-08 00:42
PROVIDERS: ADMIT Internal Medicine; ATTEND Internal Medicine
PROC: 4B02XTZ Measurement of Cardiac Defibrillator, External Approach (ICD-10-PCS; principal; 2022-05-07)
DX: I48.92 Unspecified atrial flutter (principal); G92.8 Other toxic encephalopathy; I50.23 Acute on chronic systolic (congestive) heart failure; N17.0 Acute kidney failure with tubular necrosis; I13.0 Hypertensive heart and chronic kidney disease with heart failure and stage 1 through stage 4 chronic kidney disease, or unspecified chronic kidney disease; E44.1 Mild protein-calorie malnutrition; N18.4 Chronic kidney disease, stage 4 (severe); E87.20 Acidosis, unspecified; E87.1 Hypo-osmolality and hyponatremia; N25.81 Secondary hyperparathyroidism of renal origin; R57.9 Shock, unspecified; I48.11 Longstanding persistent atrial fibrillation; I25.5 Ischemic cardiomyopathy; D63.8 Anemia in other chronic diseases classified elsewhere; E83.51 Hypocalcemia; E03.9 Hypothyroidism, unspecified; I73.9 Peripheral vascular disease, unspecified; D72.819 Decreased white blood cell count, unspecified; E87.6 Hypokalemia; N63.20 Unspecified lump in the left breast, unspecified quadrant; R77.8 Other specified abnormalities of plasma proteins; E80.6 Other disorders of bilirubin metabolism; D63.1 Anemia in chronic kidney disease; E83.39 Other disorders of phosphorus metabolism; E78.00 Pure hypercholesterolemia, unspecified; I25.10 Atherosclerotic heart disease of native coronary artery without angina pectoris; Z79.899 Other long term (current) drug therapy; I25.2 Old myocardial infarction; Z68.29 Body mass index [BMI] 29.0-29.9, adult; Z79.01 Long term (current) use of anticoagulants; T50.1X5A Adverse effect of loop [high-ceiling] diuretics, initial encounter; Z95.5 Presence of coronary angioplasty implant and graft; Z95.810 Presence of automatic (implantable) cardiac defibrillator; Y92.89 Other specified places as the place of occurrence of the external cause
CPT/HCPCS: 36415; 71045; 80048; 80053; 80061; 82607; 82728; 82746; 82962; 83036; 83540; 83550; 83735; 83880; 83970; 84100; 84439; 84443; 84484; 85025; 85027; 87426; 93005; 93306; 93970; 93971; 99285; C1893; J1940; J2260; J3490; J7060

== ENCOUNTER 2022-05-16 15:09 | Inpatient (IN) | payer MEDICARE, MEDICAID ==
[~2022-05-16] VITALS: Ht 160 cm; Wt 63.5 kg
[~2022-05-16 15:09] MED LIST changes: -CINA30TA5 PO; -FURO40TA5 MT; -HYDR-4133 MT; -SACU1TAB MT
[2022-05-16 16:58] LABS: EOSINOPHILS % 0.3 % (0.0-5.0); HEMATOCRIT. 34.1 % (36.0-48.0); HEMOGLOBIN. 11.4 g/dL (12.0-16.0); LYMPHOCYTES % 23.7 % (20.0-50.0); MEAN CORPUSCULAR HEMOGLOBIN 29.7 pg (28.0-32.0); MEAN CORPUSCULAR VOLUME 89.1 fL (81.0-99.0); MEAN PLATELET VOLUME 9.6 fl (7.4-10.4); MONOCYTES % 13.3 % (2.0-8.0); NEUTROPHILS % 61.7 % (40.0-76.0); PLATELET 160 x1000/uL (130-400); RED BLOOD CELL COUNT 3.83 mill/uL (4.2-5.4); RED CELL DISTRIBUTION WIDTH 16.5 % (11.6-14.6)
[2022-05-16 17:03] LABS: CHLORIDE 108 mEq/L (98-107)
[2022-05-16 17:07] LABS: INR 1.6; PROTHROMBIN TIME 16.1 sec (9.6-11.0)
[2022-05-16] MEDS ORDERED: ASPIRIN 325MG TABLET PO ONE (17:45)
[2022-05-16 19:51] LABS: CLARITY URINE CLEAR (CLEAR); COLOR URINE DARK YELLOW (YELLOW); KETONES URINE NEGATIVE (NEGATIVE); LEUKOCYTE ESTERASE URINE 1+ (NEGATIVE); NITRITE URINE NEGATIVE (NEGATIVE); OCCULT BLOOD URINE NEGATIVE (NEGATIVE); PROTEIN URINE 1+ (NEGATIVE); SPECIFIC GRAVITY URINE 1.014 (1.005-1.030)
[2022-05-16] MEDS ORDERED: CEFTRIAXONE 1 G PREMIX 50 ML IV ONE (22:00)
[2022-05-16] MEDS ORDERED: CEFTRIAXONE 1 G PREMIX 50 ML IV NR (22:00)
[2022-05-17] MEDS ORDERED: IPRATROPIUM/ALBUTEROL 0.5-3(2.5)MG/3ML NEB HHN PRN (09:30)
[2022-05-17] MEDS ORDERED: GUAIFENESIN 200MG/10ML SUGAR FREE UDC PO PRN (09:30)
[2022-05-17] MEDS ORDERED: ACETAMINOPHEN 325MG TABLET PO PRN ×2 (09:30)
[2022-05-17] MEDS ORDERED: DOCUSATE SODIUM 100MG CAPSULE PO PRN (09:30)
[2022-05-17] MEDS ORDERED: CLONIDINE 0.1MG TABLET PO PRN (09:30)
[2022-05-17] MEDS ORDERED: ONDANSETRON HCL 4MG/2ML INJ IV PRN (09:30)
[2022-05-17] MEDS ORDERED: ENOXAPARIN 30MG/0.3ML SYR SUBCUT SCH (10:00)
[2022-05-17 11:42] LABS: BASOPHILS % 1.5 % (0.0-2.0); EOSINOPHILS % 1.1 % (0.0-5.0); HEMATOCRIT. 34.8 % (36.0-48.0); LYMPHOCYTES % 26.8 % (20.0-50.0); MEAN CORPUSCULAR HEMOGLOBIN 29.2 pg (28.0-32.0); MEAN PLATELET VOLUME 10.1 fl (7.4-10.4); MONOCYTES % 13.4 % (2.0-8.0); NEUTROPHILS % 57.2 % (40.0-76.0); PLATELET 149 x1000/uL (130-400); RED BLOOD CELL COUNT 3.78 mill/uL (4.2-5.4); RED CELL DISTRIBUTION WIDTH 16.7 % (11.6-14.6)
[2022-05-17 11:43] LABS: CHLORIDE 108 mEq/L (98-107)
[2022-05-17 11:56] LABS: HDL CHOLESTEROL 27 mg/dL (40-59); LDL CHOLESTEROL 53 mg/dL (5-100); PHOSPHORUS 5.7 mg/dL (2.5-4.9)
[2022-05-17 12:45] LABS: VITAMIN B12 SERUM 1706 pg/mL (211-911)
[2022-05-17 12:55] LABS: FOLIC ACID (FOLATE) SERUM > 20.00 ng/mL (>5.38)
[2022-05-17] MEDS ORDERED: CEFTRIAXONE 1 G PREMIX 50 ML IV SCH (17:00)
[2022-05-17 18:24] LABS: CREATINE KINASE MB FRACTION 3.8 ng/mL (0.5-3.6)
[2022-05-17 18:30] VITALS: BP 128/80
[2022-05-17 20:00] VITALS: BP 113/83
[2022-05-17] MEDS ORDERED: IPRATROPIUM BROMIDE (0.02%) 0.5MG/2.5ML NEB HHN PRN (20:00)
[2022-05-17] MEDS ORDERED: ALBUTEROL (0.083%) 2.5MG/3ML NEB HHN PRN (20:00)
[2022-05-17] MEDS: APIXABAN 2.5 MG TABLET PO SCH (21:22)
[2022-05-17] MEDS: ATORVASTATIN CALCIUM 20MG TABLET PO SCH (21:22)
[2022-05-18] VITALS: BP 115/80
[2022-05-18 04:00] VITALS: BP 132/84
[2022-05-18 06:48] LABS: HEMATOCRIT. 35.7 % (36.0-48.0); HEMOGLOBIN. 11.6 g/dL (12.0-16.0); MEAN CORPUSCULAR HEMOGLOBIN 29.5 pg (28.0-32.0); MEAN CORPUSCULAR VOLUME 90.5 fL (81.0-99.0); MEAN PLATELET VOLUME 10.3 fl (7.4-10.4); PLATELET 150 x1000/uL (130-400); RED BLOOD CELL COUNT 3.94 mill/uL (4.2-5.4); RED CELL DISTRIBUTION WIDTH 16.1 % (11.6-14.6)
[2022-05-18 06:51] LABS: T4 FREE 1.58 ng/dL (0.76-1.46)
[2022-05-18] MEDS: LEVOTHYROXINE SODIUM 25MCG TABLET PO SCH (07:11)
[2022-05-18 08:00] VITALS: BP 124/84
[2022-05-18] MEDS ORDERED: CEFTRIAXONE 1,000 MG in DEXTROSE 5% WATER 50 ML IV SCH (09:00)
[2022-05-18] MEDS ORDERED: LACTULOSE 20G/30ML UDC PO PRN (09:30)
[2022-05-18] MEDS: APIXABAN 2.5 MG TABLET PO SCH ×2 (09:37→17:34)
[2022-05-18] MEDS: ASPIRIN 81MG EC TABLET PO SCH (09:37)
[2022-05-18 12:00] VITALS: BP 122/75
[2022-05-18] MEDS: POLYETHYLENE GLYCOL 3350 (17GM) 1 DOSE PACK PO SCH (12:24)
[2022-05-18] MEDS: CEFTRIAXONE 1,000 MG in DEXTROSE 5% WATER 50 ML IV SCH (12:25)
[2022-05-18 14:00] LABS: BG BASE EXCESS -2.8 mmol/L (-2.0-2.0); BG CARBOXYHEMOGLOBIN 0.2 % (0.5-1.5); BG DEOXYHEMOGLOBIN 2.5 % (0.0-5.0); BG HCO3 ACT 18.7 mmol/L (22.0-26.0); BG METHEMOGLOBIN 0.3 % (0.0-1.5); BG OXYGEN SATURATION 97.5 % (92.0-98.5); BG PCO2 23.9 mmHg (35.0-45.0); BG PH 7.511 (7.350-7.450); BG PO2 96.6 mmHg (75.0-100.0); BG SAMPLE SITE RIGHT RADIAL; BG TOTAL HEMOGLOBIN 11.9 g/dL (12.0-18.0); BG VENT MODE ROOM AIR
[2022-05-18 16:00] VITALS: BP 125/73
[2022-05-18 20:00] VITALS: BP 100/63
[2022-05-18] MEDS: ATORVASTATIN CALCIUM 20MG TABLET PO SCH (20:44)
[2022-05-18 21:37] LABS: PLATELET ESTIMATE NORMAL
[2022-05-19] VITALS: BP 105/66
[2022-05-19 04:00] VITALS: BP 126/73
[2022-05-19] MEDS: LEVOTHYROXINE SODIUM 25MCG TABLET PO SCH (06:00)
[2022-05-19 07:16] LABS: BASOPHILS % 1.4 % (0.0-2.0); EOSINOPHILS % 2.4 % (0.0-5.0); HEMATOCRIT. 38.7 % (36.0-48.0); HEMOGLOBIN. 12.4 g/dL (12.0-16.0); LYMPHOCYTES % 29.1 % (20.0-50.0); MEAN CORPUSCULAR HEMOGLOBIN 29.6 pg (28.0-32.0); MEAN CORPUSCULAR VOLUME 92.4 fL (81.0-99.0); MEAN PLATELET VOLUME 10.4 fl (7.4-10.4); MONOCYTES % 9.9 % (2.0-8.0); NEUTROPHILS % 57.2 % (40.0-76.0); PLATELET 149 x1000/uL (130-400); RED BLOOD CELL COUNT 4.18 mill/uL (4.2-5.4); RED CELL DISTRIBUTION WIDTH 16.8 % (11.6-14.6)
[2022-05-19 08:00] VITALS: BP 121/76
[2022-05-19] MEDS: POLYETHYLENE GLYCOL 3350 (17GM) 1 DOSE PACK PO SCH (09:21)
[2022-05-19] MEDS: ASPIRIN 81MG EC TABLET PO SCH (09:21)
[2022-05-19] MEDS: APIXABAN 2.5 MG TABLET PO SCH ×2 (09:21→16:59)
[2022-05-19 12:00] VITALS: BP 128/100
[2022-05-19] MEDS: CEFTRIAXONE 1,000 MG in DEXTROSE 5% WATER 50 ML IV SCH (13:39)
[2022-05-19 16:00] VITALS: BP 128/76
[2022-05-19 16:05] VITALS: BP 128/100
== END 2022-05-19 17:45 | DRG 689 ==
LOC: ER 15:09 → 8WST 22:01 → EDBEDREQTM 22:09 → EDBEDREQ 22:09 → ENRESERV 05-17 17:17
PROVIDERS: ADMIT Hospitalist; ATTEND Hospitalist
DX: N39.0 Urinary tract infection, site not specified (principal); N17.0 Acute kidney failure with tubular necrosis; I13.0 Hypertensive heart and chronic kidney disease with heart failure and stage 1 through stage 4 chronic kidney disease, or unspecified chronic kidney disease; E46 Unspecified protein-calorie malnutrition; I50.22 Chronic systolic (congestive) heart failure; I48.19 Other persistent atrial fibrillation; I42.9 Cardiomyopathy, unspecified; E03.9 Hypothyroidism, unspecified; E11.22 Type 2 diabetes mellitus with diabetic chronic kidney disease; I25.10 Atherosclerotic heart disease of native coronary artery without angina pectoris; N18.9 Chronic kidney disease, unspecified; E78.00 Pure hypercholesterolemia, unspecified; E11.51 Type 2 diabetes mellitus with diabetic peripheral angiopathy without gangrene; E80.6 Other disorders of bilirubin metabolism; D63.1 Anemia in chronic kidney disease; E78.5 Hyperlipidemia, unspecified; R26.9 Unspecified abnormalities of gait and mobility; K59.00 Constipation, unspecified; Z82.49 Family history of ischemic heart disease and other diseases of the circulatory system; Z79.01 Long term (current) use of anticoagulants; Z79.899 Other long term (current) drug therapy; Z95.810 Presence of automatic (implantable) cardiac defibrillator; Z87.891 Personal history of nicotine dependence; Z86.73 Personal history of transient ischemic attack (TIA), and cerebral infarction without residual deficits; I27.20 Pulmonary hypertension, unspecified; Z79.4 Long term (current) use of insulin; Z20.822 Contact with and (suspected) exposure to COVID-19
CPT/HCPCS: 36415; 36600; 71045; 80048; 80053; 80061; 81003; 82375; 82550; 82553; 82607; 82746; 82805; 83605; 83735; 83880; 84100; 84145; 84439; 84443; 84481; 84484; 85025; 87077; 87186; 87426; 93005; 93970; 97162; 97166; 99285; C1893; J0696; J1650; J7060